=== PATIENT | male | born 1950 | race Caucasian/White ===

== ENCOUNTER → 2016-04-26 | Day surgery (SDC) | payer BC ==
[2016-04-23 10:26] VITALS: Ht 185.4 cm; Wt 108.2 kg
[~2016-04-26] VITALS: Ht 185.4 cm; Wt 108.2 kg
[~2016-04-26] MED LIST: ACET1TAB84 PO; ALL300 PO; ASCO500T3 PO; BUPIVACAINE 0.25% 2.5MG/ML PF 10 ML VIAL ONE; CHOL2000 PO; COEN1CAP17 PO; DICL50TA3 PO; IOPAMIDOL INJ 61% 15 ML VIAL ONE; LIDOCAINE HCL 1% MPF 5 ML VIAL ONE; LOSA100T26 PO; METO50TA7 PO; MRLP527 PO; SIMV-151 PO; ZLF/100 PO
--- NOTE | 2016-04-26 13:53 | History & Physical Bridge - [place] ---
H&P Re-Evaluation Bridge Note: I have examined the patient, reviewed the History & Physical and in the interval since the performance of the History & Physical I have noted the following changes of clinical significance: No changes noted
[2016-04-26 14:14] VITALS: TEMP 36.7
[2016-04-26 14:19] VITALS: BP 143/80; PULSE 57; O2SAT 95
--- NOTE | 2016-04-26 14:19 | Discharge Instructions ---
Discharge Instructions Visit Reason for Visit: Sacroiliitis Discharge Discharge Diagnosis / Problem: left SI joint pain Discharge Goals Goal(s): Decrease discomfort, Improve function Activity Recommendations Activity Limitations: resume your previous activity Anesthesia . Post Anesthesia Instructions: If you have had General Anesthesia or IV Sedation: * Do not drive today. * Resume driving when surgeon permits. * Do not make important decisions or sign legal documents today. * Call surgeon for: 1. Temperature elevations greater than 101 degrees F. 2. Uncontrollable pain. 3. Excessive bleeding. 4. Persistent nausea and vomiting. 5. Medication intolerance (nausea, vomiting or rash). * For nausea and vomiting use only clear liquids such as: tea, soda, bouillon until nausea subsides, then gradually increase diet as tolerated. * If you have any concerns or questions, call your surgeon's office. If physician is unavailable and it is an emergency, call 911 or go to the nearest emergency room. . Diet Recommendations Recommended Home Diet: resume previous diet Procedures Procedures Performed: Left Sacroiliac Joint Injection. Pending Studies Studies pending at discharge: no Medical Emergencies . Who to Call and When: Medical Emergencies: If at any time you feel your situation is an emergency, please call 911 immediately. . Non-Emergent Contact Non-Emergency issues call your: Specialist . . "Provider Documentation" section prepared by Seb Son.
--- NOTE | 2016-04-26 14:35 | OPERATIVE REPORT ---
DATE OF OPERATION: 04/26/2016 PREOPERATIVE DIAGNOSIS: Left sacroiliitis secondary to trauma. POSTOPERATIVE DIAGNOSIS: Same. PROCEDURE: Left sacroiliac joint injection under fluoroscopic guidance. INDICATIONS FOR PROCEDURE: The patient is a 65-year-old white male who presents today for a left SI joint injection. He developed sacroiliitis after he fell off a ladder and sustained nondisplaced transverse process fractures and a hematoma. That problem has resolved. However, he is still bothered by pain localizing to the left SI joint. His physical examination was consistent with this and he presents today for an injection to provide him with relief of malingering pain from this trauma. PHYSICAL EXAMINATION: GENERAL: Pleasant male seated comfortably in no apparent distress. MUSCULOSKELETAL: Point tenderness to palpation at the left sacroiliac joint, worse with extension. No pain with flexion. He has a normal motor and sensory examination of the lower extremities. CONSENT: Verbal and written consent was obtained from the patient. Risks and benefits were reviewed. Risks include but are not limited to abscess or allergic reaction and he wishes to proceed. DESCRIPTION OF PROCEDURE: The patient was taken back to the special procedure room of the [facility] where he was maintained in a prone position. Backside was cleansed with Betadine x3 and a dry sterile dressing was applied. Fluoroscope was used to identify the left SI joint and the overlying skin was anesthetized with 2.5 mL of lidocaine 1% with a 25-gauge 1.5-inch needle. A 25-gauge 3.5-inch spinal needle was then directed under fluoroscopic guidance into the joint. Isovue-300 contrast 0.25 mL was injected in which showed intra-articular placement of the needle. He then underwent injection after negative aspiration of 40 mg of Depo-Medrol and 1.5 mL of bupivacaine 0.25%. Injection was well tolerated. DISPOSITION: 1. The patient is taken out into the discharge recovery area where he will be discharged home once discharge criteria have been met. 2. Follow up in the [facility] office in 2-4 weeks. I attest to the content of the Intraoperative Record and any orders documented therein. Any exceptio ns are noted below.
== END | disposition home or self-care (01) ==
LOC: X.SURG 12:40
PROVIDERS: ATTEND Physical Medicine & Rehabilitation
DX: M46.1 Sacroiliitis, not elsewhere classified (principal); Z87.828 Personal history of other (healed) physical injury and trauma; F32.9 Major depressive disorder, single episode, unspecified; K57.30 Diverticulosis of large intestine without perforation or abscess without bleeding; I10 Essential (primary) hypertension; E78.5 Hyperlipidemia, unspecified

== ENCOUNTER → 2017-03-29 | Outpatient (CLI) | payer BC, OTHER ==
[~2017-03-29] MED LIST changes: -BUPIVACAINE 0.25% 2.5MG/ML PF 10 ML VIAL ONE; -IOPAMIDOL INJ 61% 15 ML VIAL ONE; -LIDOCAINE HCL 1% MPF 5 ML VIAL ONE; -LOSA100T26 PO; +LOSA100T33 PO
--- NOTE | 2017-03-29 11:53 | DIAGNOSTIC IMAGING REPORT ---
LEFT ELBOW 3 VIEWS CLINICAL HISTORY: Left elbow pain. FINDINGS: 3 views of left elbow are obtained. No prior studies are available for comparison at the time of dictation. The skeletal structures are well mineralized. No fracture is seen. There is a large enthesophyte at the triceps insertion. There are small enthesophytes seen along the humeral epicondyles. There is a 10 mm bony excrescence just above the lateral epicondyle which may represent a small osteochondroma. There is no joint effusion. The overlying soft tissues are within normal limits. IMPRESSION: 1. Mild degenerative change as above. No acute bony abnormality is seen in the left elbow. 2. Suspect a small osteochondroma arising just above the lateral humeral epicondyle. Electronically signed by: Quentin Gonzales M.D. 03/29/2017 11:51 AM Dictated Date/Time: 03/29/2017 11:49 AM
--- NOTE | 2017-03-29 11:53 | DIAGNOSTIC IMAGING REPORT ---
L HAND MIN 3 VIEWS CLINICAL HISTORY: LEFT HAND PAIN COMPARISON: None. DISCUSSION: Moderate degenerative change of the interphalangeal joints throughout the left hand. Metallic foreign bodies at the distal aspect of the thenar eminence within the soft tissues. These appear to be pre-existing and nonacute per history. No evidence for significant soft tissue edema. IMPRESSION: Moderate degenerative change primarily of the interphalangeal joints. Soft tissue metallic foreign bodies. No acute bony abnormalities identified. The above report was generated using voice recognition software. It may contain grammatical, syntax or spelling errors. Electronically signed by: Jaylen Reese M.D. 03/29/2017 11:52 AM Dictated Date/Time: 03/29/2017 11:51 AM
== END | disposition home or self-care (01) ==
LOC: C.RDSM 12:53
PROVIDERS: ATTEND Physician Assistant
DX: M79.642 Pain in left hand (principal); M25.522 Pain in left elbow; M89.8X4 Other specified disorders of bone, hand; M89.8X3 Other specified disorders of bone, forearm

== ENCOUNTER 2019-04-16 13:03 | Inpatient (IN) ==
[2019-04-16 15:57] LABS: BUN Creatinine Ratio 14.8 (10-20); Blood Urea Nitrogen 18 mg/dl (7-18); Calcium 9.5 mg/dl (8.5-10.1); Carbon Dioxide 27 mmol/L (21-32); Chloride 106 mmol/L (98-107); Creatinine Clr Calc Pharmacy 77.7 ml/min; Est GFR (African American) 72.1; Est GFR (Non-African American) 62.2; Glucose 108 mg/dl (70-99); Lipase 110 U/L (73-393); Potassium 4.2 mmol/L (3.5-5.1); Sodium 139 mmol/L (136-145)
[2019-04-16 16:02] LABS: Troponin I < 0.015 ng/ml (0-0.045)
[2019-04-16 16:08] LABS: Hematocrit (blood only) 47.6 % (42-52); Hemoglobin 16.5 g/dL (14.0-18.0); Mean Corpuscular Hemoglobin 31.3 pg (25-34); Mean Corpuscular Hgb Conc 34.7 g/dL (32-36); Mean Corpuscular Volume 90.3 fL (80-100); Mean Platelet Volume 11.6 fL (7.4-10.4); Platelet Count 78 K/uL (130-400); RDW Coefficient of Variation 14.3 % (11.5-14.5); RDW Standard Deviation 47.3 fL (36.4-46.3); Red Blood Count 5.27 M/uL (4.7-6.1); White Blood Count 4.92 K/uL (4.8-10.8)
[2019-04-16 16:11] LABS: Basophils # (auto) 0.01 K/uL (0-0.2); Basophils % (auto) 0.2 %; Eosinophils # (auto) 0.07 K/uL (0-0.5); Eosinophils % (auto) 1.4 %; Immature Granulocytes # (auto) 0.01 K/uL (0.00-0.02); Immature Granulocytes % (auto) 0.2 %; Lymphocytes # (auto) 1.02 K/uL (1.2-3.4); Lymphocytes % (auto) 20.7 %; Monocytes # (auto) 0.29 K/uL (0.11-0.59); Monocytes % (auto) 5.9 %; Neutrophils # (auto) 3.52 K/uL (1.4-6.5); Neutrophils % (auto) 71.6 %
--- NOTE | 2019-04-16 16:12 | CT Scan Report ---
CT SCAN OF THE BRAIN WITHOUT IV CONTRAST CLINICAL HISTORY: Dizziness. COMPARISON STUDY: No priors. TECHNIQUE: Unenhanced axial CT scan of the brain is performed from the vertex to the skull base. A do se lowering technique was utilized adhering to the principles of ALARA. CT DOSE: 729.78 mGycm FINDINGS: Brain parenchyma: There is minimal subcortical and periventricular microangiopathic change. There is no hemorrhage, mass effect, or evidence of acute territorial ischemia by CT criteria. Bae-white matthieu er differentiation is preserved. No extra-axial fluid collection is seen. Ventricles, sulci, cisterns: Normal in configuration. Intracranial vasculature: There is mild atherosclerotic calcification of the cavernous carotid and ve rtebral arteries. Calvarium: Unremarkable. Sinuses and mastoids: The visualized paranasal sinuses are clear. The mastoid air cells are well pneu matized. Orbits: The bony orbits are grossly intact. IMPRESSION: There is no hemorrhage, mass effect, or evidence of acute territorial ischemia by CT crit eria. ACT 112: Negative or not required by law. Electronically signed by: Quentin Gonzales M.D. 04/16/2019 4:10 PM
--- NOTE | 2019-04-16 16:13 | XRay Report ---
TWO VIEW CHEST CLINICAL HISTORY: Atypical chest pain. Dizziness. FINDINGS: PA and lateral chest radiographs are compared to study dated 02/03/2018. The cardiomediasti nal silhouette is unremarkable. There is chronic elevation of left hemidiaphragm with associated atel ectasis. The lungs and pleural spaces are otherwise clear. There is no pneumothorax. The bony thorax appears intact. Surgical clips are noted in the left axilla. IMPRESSION: No active disease in the chest. ACT 112: Negative or not required by law. Electronically signed by: Quentin Gonzales M.D. 04/16/2019 4:12 PM
[2019-04-16 16:14] LABS: Magnesium 2.2 mg/dl (1.8-2.4)
[2019-04-16 16:18] LABS: D Dimer < 190 ug/L FEU (0-500); Partial Thromboplastin Ratio 1.1; Prothrombin Time 10.6 Seconds (9.0-12.0)
--- NOTE | 2019-04-16 18:06 | Emergency Department Note ---
Entered by Belkis Shaw acting as a scribe for Dale Castro History of Present Illness General Chief complaint: Dizziness Stated complaint: DIZZINESS, LIGHTHEADED, FORGETFUL Time Seen by Provider: 04/16/19 15:13 Source: patient History of Present Illness Onset (ago): month(s) 1 Location: head Pain Consistency: + other (worsening) Maximum Pain Intensity: 5 Quality: + other (dizziness) Exacerbated By: + movement Associated symptoms: + denies other symptoms (hemoptysis), + chest pain, + shortness of breath and + other (loss of balance, forgetful) The patient is a 68 year old male who presents to the Emergency Room with compl aints of worsening dizziness starting a month ago. The patient states that on March 23 he went to his PCP because of it. He reports that he had been on Metformin for 3 weeks and they thought it was due to the medicine, so they took him off it. He notes that at that time they did lab work and everything was negative. He states that the dizziness continued though. He reports that 10 days ago he went to a clinic because he noticed it was worse when getting up. He reports that they diagnosed him with orthostatic hypotension and sent him home. He reports that when he went to his heart doctor 3 days ago, they told him it wasnt that because they didnt find the same findings. The patient states that he is just concerned as the dizziness is getting worse and he has started becoming short of breath when he goes up the stairs. He notes that he has also had constant chest pain in the center of his chest that radiates into his back. He notes that it occasionally radiates into his arm and neck. He notes that he cannot remember which arm. The patients notes that he has been forgetful lately as well. She notes that the patient has also been short of breath when getting out of the shower. The patient complains of loss of balance. The patient denies recent head trauma, recent travel, hemoptysis, use of hormone pills, and use of blood thinners. Home Medications Home Medications Medication Instructions Recorded Confirmed Type allopurinol 150 mg PO QAM 01/30/18 04/16/19 History ascorbic acid (vitamin C) 500 mg PO QAM 01/30/18 04/16/19 History aspirin [Aspir-81] 81 mg PO QPM 01/30/18 04/16/19 History cholecalciferol (vitamin D3) 2,000 unit PO QAM 01/30/18 04/16/19 History [Vitamin D3] coenzyme Q10 [CoQ-10] 100 mg PO QAM 01/30/18 04/16/19 History metoprolol succinate [Toprol XL] 50 mg PO QAM 01/30/18 04/16/19 History polyethylene glycol 3350 [Miralax] 17 g PO QAM 01/30/18 04/16/19 History sertraline [Zoloft] 100 mg PO PM 01/30/18 04/16/19 History simvastatin 20 mg PO PM 01/30/18 04/16/19 History nitroglycerin 0.4 mg sublingual 0.4 mg SL Q5M PRN #25 tab 01/12/19 04/16/19 Rx tablet losartan 100 0.5 tab PO QAM tab 03/30/19 04/16/19 History mg-hydrochlorothiazide 12.5 mg tablet Allergies Allergy/AdvReac Type Severity Reaction Status Date / Time hylan G-F 20 Allergy Mild KNEE Verified 04/16/19 15:10 INJECTION-KNEE SWELLING,SWEATING,FEVER Past Med/Surg History Surgical History History of cardiac cath KEVIN X 1 TO RCA (09/2016) one cardiac stent placed History of colon resection DIVERTICULITIS History of herniorrhaphy RIGHT INGUINAL History of total knee replacement LEFT TKA History of total knee replacement RIGHT -- [facility] 02/19/18. SAB + PNB, no issues noted on record. DID NOT REQUIRE PLATELET TRANSFUSION. Family History Other Family history non-contributory Social History Preferred Language: Portuguese Communication Ability: Effective Television Specialist Required: No Beliefs That Will Affect Care: None marital status: Current Living Situation: Spouse Feels Safe at Home: Yes Smoking Status: Former smoker Tobacco Type: cigarettes ; Second Hand Exposure: Yes (PREVIOUS 25 YRS AGO) ; Hx Alcohol Use: Yes Alcohol type: beer and wine Hx Substance Use: No Review of Systems See HPI for pertinent positives & negatives. and A total of 10 systems reviewed and were otherwise negative Physical Exam Vital Signs Vital Signs - 24 hr 04/16/19 13:28 04/16/19 13:35 04/16/19 15:46 Temperature 36.7 C Temperature Source Oral Pulse Rate - Sitting 59 L Pulse Rate - Standing 65 Pulse Rate [Left] 55 L Pulse Rhythm [Left] Regular Respiratory Rate 20 15 Respiratory Effort / Characteristics Non-Labored Spontaneous Non-Labored Respiratory Depth Normal Normal Respiratory Pattern Regular Regular Blood Pressure - Sitting 150/79 H Blood Pressure- Standing 155/99 H Blood Pressure 150/78 H Blood Pressure [Left Arm] 158/86 H Blood Pressure Mean 102 Blood Pressure Mean [Left Arm] 110 Blood Pressure Position Sitting Pulse Oximetry 94 94 Oxygen Delivery Method Room Air Room Air Sepsis Recent Fever Within 48 Hours No Sepsis New/Unexplained Change in Mental Status No Sepsis Action Taken by Nursing No Action Required 04/16/19 16:25 04/16/19 17:30 Temperature Temperature Source Pulse Rate - Sitting Pulse Rate - Standing Pulse Rate [Left] 92 H 92 H Pulse Rhythm [Left] Regular Regular Respiratory Rate 17 19 Respiratory Effort / Characteristics Non-Labored Spontaneous Non-Labored Respiratory Depth Normal Normal Respiratory Pattern Regular Regular Blood Pressure - Sitting Blood Pressure- Standing Blood Pressure Blood Pressure [Left Arm] 143/82 H 140/85 Blood Pressure Mean Blood Pressure Mean [Left Arm] 102 103 Blood Pressure Position Pulse Oximetry 98 95 Oxygen Delivery Method Room Air Room Air Sepsis Recent Fever Within 48 Hours Sepsis New/Unexplained Change in Mental Status Sepsis Action Taken by Nursing GENERAL: He is oriented to person, place, and time. He appears well-developed and well-nourished. He does not appear distressed. HENT: Exam performed. - Head: Normocephalic and atraumatic. - Right Ear: External ear normal. No mastoid tenderness. - Left Ear: External ear normal. No mastoid tenderness. - Mouth/Throat: The oropharynx is clear and moist. No trismus in the jaw. No dental abscesses or uvula swelling. No oropharyngeal exudate or tonsillar abscesses. EYES: Conjunctivae and EOM are normal. Pupils are equal, round, and reactive to light. Right eye exhibits no discharge. Left eye exhibits no discharge. No scleral icterus. NECK: Normal range of motion. Neck supple. No JVD present. No spinous process tenderness present. No carotid bruit present. No rigidity. No tracheal deviation and normal range of motion present. No Brudzinski's sign and no Kernig's sign noted. CV: Normal rate, regular rhythm, normal heart sounds and intact distal pulses. There is no peripheral edema. Palpable radial pulses bue. PULM/CHEST: Effort normal and breath sounds normal. No respiratory distress. No stridor. He has no wheezes. He has no rales. - Chest Wall: He exhibits no tenderness. ABD: The abdomen is soft. Bowel sounds are normal. He has no distension. No mass is present. There is no tenderness. There is no rebound, no guarding, no Galvan's sign and no tenderness at McBurney's point. Rovsig negative. MUSC/SKEL: Normal range of motion. There is no peripheral edema, tenderness or deformity. LYMPH: No cervical adenopathy. NEURO: He is alert and oriented to person, place, and time. He has normal strength. No cranial nerve deficit or sensory deficit. Coordination and gait normal. GCS eye subscore is 4. GCS verbal subscore is 5. GCS motor subscore is 6. Cerebellar tests wnl. SKIN: Skin is warm and dry. He is not diaphoretic. PSYCH: He has a normal mood and affect. Behavior is normal. Judgment and thought content normal. Course Course 1514: The patient was evaluated in room B7. A complete history and physical exam was performed. 1627: Vital signs stable. Labs and imaging within normal limits. The patient shows multiple PVCs on the campus monitor and the EKG. There is no pattern of bigemini or trigeminy at this time. Given the patient's exertional dyspnea and feelings of near syncope on exertion, the patient will be admitted for further evaluation. and patient are in agreement with this plan as they do not feel comfortable going home. I discussed the patient's case with Dr. Jauregui [facility] Hospitalist. He will evaluate the patient for further management. Medical Decision Making Medical Records Attestation: I reviewed the patient's medical records. Home Medications Current Medication List: was personally reviewed by me Laboratory Data Attestation: I reviewed the patient's lab results. Result diagrams: 04/16/19 15:33 04/16/19 15:33 Lab Results 04/16/19 04/16/19 04/16/19 Range/Units 15:33 15:33 15:33 WBC 4.92 (4.8-10.8) K/uL RBC 5.27 (4.7-6.1) M/uL Hgb 16.5 (14.0-18.0) g/dL Hct 47.6 (42-52) % MCV 90.3 (80-100) fL MCH 31.3 (25-34) pg MCHC 34.7 (32-36) g/dL RDW Std Deviation 47.3 H (36.4-46.3) fL RDW Coeff of Mari 14.3 (11.5-14.5) % Plt Count 78 L (130-400) K/uL MPV 11.6 H (7.4-10.4) fL Immature Gran % (Auto) 0.2 % Neut % (Auto) 71.6 % Lymph % (Auto) 20.7 % Gray % (Auto) 5.9 % Eos % (Auto) 1.4 % Baso % (Auto) 0.2 % Immature Gran # (Auto) 0.01 (0.00-0.02) K/uL Neut # (Auto) 3.52 (1.4-6.5) K/uL Lymph # (Auto) 1.02 L (1.2-3.4) K/uL Gray # (Auto) 0.29 (0.11-0.59) K/uL Eos # (Auto) 0.07 (0-0.5) K/uL Baso # (Auto) 0.01 (0-0.2) K/uL PT 10.6 (9.0-12.0) Seconds INR 1.0 (0.9-1.1) APTT 29.0 (21.0-31.0) Seconds PTT Ratio 1.1 D-Dimer < 190 (0-500) ug/L FEU Sodium 139 (136-145) mmol/L Potassium 4.2 (3.5-5.1) mmol/L Chloride 106 (98-107) mmol/L Carbon Dioxide 27 (21-32) mmol/L Anion Gap 6.0 (3-11) BUN 18 (7-18) mg/dl Creatinine 1.20 (0.6-1.4) mg/dl Est Cr Clr Drug Dosing 77.7 ml/min Est GFR ( Amer) 72.1 Est GFR (Non-Af Amer) 62.2 BUN/Creatinine Ratio 14.8 (10-20) Glucose 108 H (70-99) mg/dl Calcium 9.5 (8.5-10.1) mg/dl Magnesium 2.2 (1.8-2.4) mg/dl Troponin I < 0.015 (0-0.045) ng/ml Lipase 110 (73-393) U/L 04/16/19 Range/Units 15:33 WBC (4.8-10.8) K/uL RBC (4.7-6.1) M/uL Hgb (14.0-18.0) g/dL Hct (42-52) % MCV (80-100) fL MCH (25-34) pg MCHC (32-36) g/dL RDW Std Deviation (36.4-46.3) fL RDW Coeff of Mari (11.5-14.5) % Plt Count (130-400) K/uL MPV (7.4-10.4) fL Immature Gran % (Auto) % Neut % (Auto) % Lymph % (Auto) % Gray % (Auto) % Eos % (Auto) % Baso % (Auto) % Immature Gran # (Auto) (0.00-0.02) K/uL Neut # (Auto) (1.4-6.5) K/uL Lymph # (Auto) (1.2-3.4) K/uL Gray # (Auto) (0.11-0.59) K/uL Eos # (Auto) (0-0.5) K/uL Baso # (Auto) (0-0.2) K/uL PT (9.0-12.0) Seconds INR (0.9-1.1) APTT (21.0-31.0) Seconds PTT Ratio D-Dimer (0-500) ug/L FEU Sodium (136-145) mmol/L Potassium (3.5-5.1) mmol/L Chloride (98-107) mmol/L Carbon Dioxide (21-32) mmol/L Anion Gap (3-11) BUN (7-18) mg/dl Creatinine (0.6-1.4) mg/dl Est Cr Clr Drug Dosing ml/min Est GFR ( Amer) Est GFR (Non-Af Amer) BUN/Creatinine Ratio (10-20) Glucose (70-99) mg/dl Calcium (8.5-10.1) mg/dl Magnesium Cancelled (1.8-2.4) mg/dl Troponin I (0-0.045) ng/ml Lipase (73-393) U/L Imaging Data Radiologist's Impression: Radiology results as stated below per my review and the radiologist's interpretation: TWO VIEW CHEST CLINICAL HISTORY: Atypical chest pain. Dizziness. FINDINGS: PA and lateral chest radiographs are compared to study dated 02/03/2018. The cardiomediastinal silhouette is unremarkable. There is chronic elevation of left hemidiaphragm with associated atelectasis. The lungs and pleural spaces are otherwise clear. There is no pneumothorax. The bony thorax appears intact. Surgical clips are noted in the left axilla. IMPRESSION: No active disease in the chest. ACT 112: Negative or not required by law. Electronically signed by: Quentin Gonzales M.D. 04/16/2019 4:[address] SCAN OF THE BRAIN WITHOUT IV CONTRAST CLINICAL HISTORY: Dizziness. COMPARISON STUDY: No priors. TECHNIQUE: Unenhanced axial CT scan of the brain is performed from the vertex to the skull base. A dose lowering technique was utilized adhering to the principles of ALARA. CT DOSE: 729.78 mGycm FINDINGS: Brain parenchyma: There is minimal subcortical and periventricular microangiopathic change. There is no hemorrhage, mass effect, or evidence of acute territorial ischemia by CT criteria. Bae-white matter differentiation is preserved. No extra-axial fluid collection is seen. Ventricles, sulci, cisterns: Normal in configuration. Intracranial vasculature: There is mild atherosclerotic calcification of the cavernous carotid and vertebral arteries. Calvarium: Unremarkable. Sinuses and mastoids: The visualized paranasal sinuses are clear. The mastoid air cells are well pneumatized. Orbits: The bony orbits are grossly intact. IMPRESSION: There is no hemorrhage, mass effect, or evidence of acute territorial ischemia by CT criteria. ACT 112: Negative or not required by law. Electronically signed by: Quentin Gonzales M.D. 04/16/2019 4:10 PM ECG Data Attestation: I personally reviewed and interpreted this ECG as follows: Indication: + other (dizziness) Rate (beats per minute): 86 Rhythm: + sinus rhythm ECG Intervals/blocks: + First degree AV block and + Right Bundle branch block ECG ST segments: no ST depression and no ST elevation ECG Findings: + PVCs and + Other (CA interval 216, QRS interval 136, QT-c interval 500) Blood Pressure Blood Pressure Findings: Elevated blood pressure Blood Pressure Disposition: further management by hospitalist MDM Narrative Vital signs stable. Labs and imaging within normal limits. The patient shows multiple PVCs on the campus monitor and the EKG. There is no pattern of bigemini or trigeminy at this time. Given the patient's exertional dyspnea and feelings of near syncope on exertion, the patient will be admitted for further evaluation. and patient are in agreement with this plan as they do not feel comfortable going home. I discussed the patient's case with Dr. Shania KAPLAN Hospitalist. He will evaluate the patient for further management. Impression & Plan Exertional dyspnea, Near syncope, Frequent PVCs Discharge Plan Visit Data Chief Complaint: Dizziness Stated Complaint: DIZZINESS, LIGHTHEADED, FORGETFUL ED Provider: Dale Castro Discharge Problem: Exertional dyspnea, Near syncope, Frequent PVCs Patient Disposition: Being Evaluated by Hospitalist Forms Stand Alone Forms: My [facility] Prescriptions Prescriptions: No Action nitroglycerin 0.4 mg tablet, sublingual 0.4 mg SL Q5M PRN (Reason: chest pain) Qty: 25 RF: 3 losartan-hydrochlorothiazide [Hyzaar] 100-12.5 mg tablet 0.5 tab PO QAM RF: 0 polyethylene glycol 3350 [Miralax] 17 gram Powder In Packet 17 g PO QAM RF: 0 metoprolol succinate [Toprol XL] 50 mg Tablet Extended Release 24 Hr 50 mg PO QAM RF: 0 sertraline [Zoloft] 100 mg Tablet 100 mg PO PM RF: 0 simvastatin 20 mg Tablet 20 mg PO PM RF: 0 allopurinol 300 mg Tablet 150 mg PO QAM RF: 0 coenzyme Q10 [CoQ-10] 100 mg Capsule 100 mg PO QAM RF: 0 cholecalciferol (vitamin D3) [Vitamin D3] 2,000 unit Capsule 2,000 unit PO QAM RF: 0 ascorbic acid (vitamin C) 500 mg Capsule 500 mg PO QAM RF: 0 aspirin [Aspir-81] 81 mg Tablet,Delayed Release (Dr/Ec) 81 mg PO QPM RF: 0 Referrals Referrals: Wanda Delgadillo [Primary Care Provider] - The scribe's documentation has been prepared under my direction and personally reviewed by me in its entirety. I confirm that the note above accurately reflects all work, treatment, procedures, and medical decision making performed by me.
[2019-04-16] MEDS ORDERED: NITROGLYCERIN SL 0.4 MG/TAB TAB SL PRN (18:17)
--- NOTE | 2019-04-16 18:17 | History & Physical Report ---
Date of Service April 16, 2019 Assessment & Plan (1) Exertional dyspnea: Unclear from current work-up. Patient so far is not showing any signs of acute CHF or primary lung disorder. Will check 2D echo. Follow dysrhythmia on monitor with activity. Check orthostatics. Consideration to PFTs as an outpatient if no clear diagnosis can be found. (2) Near syncope: Possible orthostasis although patient had recent orthostatics checked that were unremarkable. We will continue to monitor this with PT. (3) Frequent PVCs: 2D echo ordered as noted above. Patient does follow with cardiology will ask for their recommendations as well. If okay with hydrochloric area supervisor, will increase Toprol dose to 100 mg daily. (4) Hypertension: Blood pressure mildly elevated, may improve with increased dosing of Toprol. History of Present Illness Primary Care Provider: Wanda Delgadillo This is a 62-year-old male with past medical history of previous coronary artery disease status post stent, BPH, and hypertension who presents today complaining of dyspnea on exertion as well as near syncope. Patient is coming by his both are good historians. There is some debate between the patient and his regarding when symptoms started. The patient does note that over the past few weeks he has been noticing some worsening dyspnea on exertion. This was not severe first but he apparently has progressed to the point that he is having difficulty with any ambulation. He did have. And near syncope earlier today which is what prompted him to seek emergency evaluation. He denies any overt chest pain, palpitations, diaphoresis, nausea, vomiting, recent illness with fever or chills. In the emergency room, he was noted to have some multiple PVCs on the monitor, heart rate at that time was stable in the 80s.. At the time my evaluation he had something that appeared to be trigeminy with a stable rate. Patient denies any recent weight changes. He also denies any cough or sputum production. He does state that his losartan was recently decreased and was wondering if that was relevant. Patient does follow with outpatient cardiology but only peripherally. Is on my evaluation the patient was in no acute distress and otherwise looked well. Allergies Allergy/AdvReac Type Severity Reaction Status Date / Time hylan G-F 20 Allergy Mild KNEE Verified 04/16/19 15:10 INJECTION-KNEE SWELLING,SWEATING,FEVER Home Medications Home Medications Medication Instructions Recorded Confirmed Type allopurinol 150 mg PO QAM 01/30/18 04/16/19 History ascorbic acid (vitamin C) 500 mg PO QAM 01/30/18 04/16/19 History aspirin [Aspir-81] 81 mg PO QPM 01/30/18 04/16/19 History cholecalciferol (vitamin D3) 2,000 unit PO QAM 01/30/18 04/16/19 History [Vitamin D3] coenzyme Q10 [CoQ-10] 100 mg PO QAM 01/30/18 04/16/19 History metoprolol succinate [Toprol XL] 50 mg PO QAM 01/30/18 04/16/19 History polyethylene glycol 3350 [Miralax] 17 g PO QAM 01/30/18 04/16/19 History sertraline [Zoloft] 100 mg PO PM 01/30/18 04/16/19 History simvastatin 20 mg PO PM 01/30/18 04/16/19 History nitroglycerin 0.4 mg sublingual 0.4 mg SL Q5M PRN #25 tab 01/12/19 04/16/19 Rx tablet losartan 100 0.5 tab PO QAM tab 03/30/19 04/16/19 History mg-hydrochlorothiazide 12.5 mg tablet Past Med/Surg History Surgical History History of cardiac cath KEVIN X 1 TO RCA (09/2016) one cardiac stent placed History of colon resection DIVERTICULITIS History of herniorrhaphy RIGHT INGUINAL History of total knee replacement LEFT TKA History of total knee replacement RIGHT -- [facility] 02/19/18. SAB + PNB, no issues noted on record. DID NOT REQUIRE PLATELET TRANSFUSION. 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 Beliefs That Will Affect Care: None marital status: Current Living Situation: Spouse Feels Safe at Home: Yes Smoking Status: Former smoker Tobacco Type: cigarettes ; Second Hand Exposure: Yes (PREVIOUS 25 YRS AGO) ; Hx Alcohol Use: Yes Alcohol type: beer and wine Hx Substance Use: No Review of Systems Constitutional: no fever, no chills, no sweats, no weight loss and no weight gain Ear, Nose, Mouth, Throat: as per Subjective / HPI Respiratory: + dyspnea on exertion; no cough, no chest congestion, no dyspnea and no wheezing Cardiovascular: + dyspnea, + orthopnea and + lightheadedness; no chest pain Gastrointestinal: no nausea, no vomiting, no constipation and no diarrhea/loose stools Genitourinary: no dysuria, no difficulty urinating, no urinary frequency, no urinary hesitancy and no urinary incontinence Musculoskeletal: as per Subjective / HPI Integumentary: as per Subjective / HPI Neurologic: as per Subjective / HPI Psychiatric: as per Subjective / HPI Physical Exam 2 Constitutional: well nourished, + well hydrated and cooperative; no acute distress ENMT: external ear and nose normal, oropharynx normal Neck: trachea midline, no thyromegaly Respiratory: Auscultation: lungs clear to auscultation bilaterally; no crackles, no rales, no rhonchi and no wheezes Cardiovascular: Rate/Rhythm: regular rate Heart Sounds: normal S1 and normal S2; no murmur Vessels: no JVD and no carotid bruit Irregularly regular rhythm Gastrointestinal (Abdomen): Percussion/Palpation: abdomen soft; abdomen nontender, no guarding, abdomen not rigid and no hepatosplenomegaly Musculoskeletal: no cyanosis or clubbing, extremities motor strength 5/5 Neurologic: PERRL, EOMI, accommodation nl, no face palsy, no dysarthria Psychiatric: A+Ox3, euthymic affect Results & Data Vital Signs (Past 12 Hours) Vital Signs Temp Pulse Resp BP BP Pulse Ox 04/16/19 17:30 92 H 19 140/85 95 04/16/19 16:25 92 H 17 143/82 H 98 04/16/19 15:46 55 L 15 158/86 H 94 04/16/19 13:28 36.7 C 20 150/78 H 94 Laboratory Results CBC unremarkable, INR is 1,, BMP is normal with a normal magnesium. Troponin was nondetectable. EKG shows sinus bradycardia with a trigeminy pattern multiple PVCs. There is right bundle branch block. Diagnostic Findings TWO VIEW CHEST CLINICAL HISTORY: Atypical chest pain. Dizziness. FINDINGS: PA and lateral chest radiographs are compared to study dated 02/03/2018. The cardiomediastinal silhouette is unremarkable. There is chronic elevation of left hemidiaphragm with associated atelectasis. The lungs and pleural spaces are otherwise clear. There is no pneumothorax. The bony thorax appears intact. Surgical clips are noted in the left axilla. IMPRESSION: No active disease in the chest. --- CT SCAN OF THE BRAIN WITHOUT IV CONTRAST CLINICAL HISTORY: Dizziness. COMPARISON STUDY: No priors. TECHNIQUE: Unenhanced axial CT scan of the brain is performed from the vertex to the skull base. A dose lowering technique was utilized adhering to the principles of ALARA. CT DOSE: 729.78 mGycm FINDINGS: Brain parenchyma: There is minimal subcortical and periventricular microangiopathic change. There is no hemorrhage, mass effect, or evidence of acute territorial ischemia by CT criteria. Bae-white matter differentiation is preserved. No extra-axial fluid collection is seen. Ventricles, sulci, cisterns: Normal in configuration. Intracranial vasculature: There is mild atherosclerotic calcification of the cavernous carotid and vertebral arteries. Calvarium: Unremarkable. Sinuses and mastoids: The visualized paranasal sinuses are clear. The mastoid air cells are well pneumatized. Orbits: The bony orbits are grossly intact. IMPRESSION: There is no hemorrhage, mass effect, or evidence of acute territorial ischemia by CT criteria. PG Care Time/CCT Total # of Minutes Spent Total Time Spent with Patient: Total time spent is greater than 50% in coordination of care (as documented) at patient's floor/unit and/or counseling patient:
[2019-04-16] MEDS ORDERED: ACETAMINOPHEN 325 MG TAB PO PRN (19:30)
[2019-04-16] MEDS ORDERED: ZOLPIDEM TARTRATE 5 MG TAB PO PRN (19:30)
[2019-04-16] MEDS: ASPIRIN 81 MG ECTAB PO SCH (21:33)
[2019-04-16] MEDS: SERTRALINE HCL 100 MG TABLET PO SCH (21:33)
[2019-04-16] MEDS: SIMVASTATIN 20 MG TAB PO SCH (21:33)
[2019-04-17 07:46] LABS: Hematocrit (blood only) 47.2 % (42-52); Hemoglobin 16.3 g/dL (14.0-18.0); Mean Corpuscular Hemoglobin 31.5 pg (25-34); Mean Corpuscular Hgb Conc 34.5 g/dL (32-36); Mean Corpuscular Volume 91.1 fL (80-100); Mean Platelet Volume 12.5 fL (7.4-10.4); Platelet Count 78 K/uL (130-400); RDW Coefficient of Variation 14.4 % (11.5-14.5); RDW Standard Deviation 47.7 fL (36.4-46.3); Red Blood Count 5.18 M/uL (4.7-6.1); White Blood Count 3.92 K/uL (4.8-10.8)
[2019-04-17 07:52] LABS: Basophils # (auto) 0.01 K/uL (0-0.2); Basophils % (auto) 0.3 %; Eosinophils # (auto) 0.08 K/uL (0-0.5); Lymphocytes # (auto) 0.88 K/uL (1.2-3.4); Lymphocytes % (auto) 22.4 %; Monocytes # (auto) 0.23 K/uL (0.11-0.59); Monocytes % (auto) 5.9 %; Neutrophils # (auto) 2.72 K/uL (1.4-6.5); Neutrophils % (auto) 69.4 %
[2019-04-17 08:03] LABS: BUN Creatinine Ratio 14.4 (10-20); Creatinine Clr Calc Pharmacy 85.5 ml/min; Est GFR (African American) 81.9; Est GFR (Non-African American) 70.6; Potassium 3.7 mmol/L (3.5-5.1)
[2019-04-17] MEDS ORDERED: NON-FORMULARY MEDICATION (Coenzyme Q10 [Coq-10] 100 MG) PO SCH (09:00)
[2019-04-17] MEDS ORDERED: METOPROLOL SUCC 50MG EXT REL TAB PO SCH (09:00)
[2019-04-17] MEDS: ASCORBIC ACID 500 MG TAB PO SCH (09:47)
[2019-04-17] MEDS: allopurinoL 100 MG TAB PO SCH (09:48)
[2019-04-17] MEDS: CHOLECALCIFEROL 1,000 UNITS TAB PO SCH (09:48)
[2019-04-17] MEDS: hydroCHLOROthiazide 25 MG TAB PO SCH (09:48)
[2019-04-17] MEDS: LOSARTAN POTASSIUM 50 MG TAB PO SCH (09:48)
[2019-04-17] MEDS: POLYETHYLENE (MIRALAX) 17 GM PACK PO SCH (09:49)
[2019-04-17 11:18] LABS: Chol HDL Ratio 5; Cholesterol 137 mg/dl (0-200); HDL Cholesterol 28 mg/dl; LDL Cholesterol Calculated 64 mg/dl; Triglycerides 226 mg/dl (0-150); VLDL Cholesterol 45 mg/dl
[2019-04-17 13:19] LABS: Estimated Average Glucose 117 mg/dl; Hemoglobin A1C 5.7 % (4.5-5.6)
--- NOTE | 2019-04-17 13:24 | Cardiology Consultation ---
Date of Consultation April 17, 2019 Assessment & Plan (1) Dizziness: Suspect the patient may be experiencing benign positional vertigo. Jose Alfredo's maneuvers may be of benefit. (2) Frequent PVCs: Of no clinical significance. (3) CAD (coronary artery disease): As above, had a drug-eluting stent placed in the mid RCA back in September 2016. Was also found to have a mid LAD bridge. (4) Hypertension: Adequate control on current medical regimen. (5) Valvular disease: Mild mitral regurgitation noted on echocardiogram January 2018. Repeat study pending. History of Present Illness Attending Physician: Edouard Villalobos DO History of Present Illness Mr. Garduno is a 68-year-old male dizziness and an atypical chest pain syndrome. This consultations were to assistance management. Of note, I met the patient in December for consultation. The patient was in his usual state of health until approximately 1 month ago. The patient began to note orthostatic dizziness and occasional dizziness if he turns his head quickly. He also noted substernal chest discomfort after eating. His symptoms typically resolved with antacids. The patient has not experienced any exertional chest pain or limiting dyspnea. He further denies syncope, PND, orthopnea, palpitations, lower extremity edema, and claudication. The patient's cardiac history began in September 2016. The patient had failed a stress test and underwent a cardiac catheterization which revealed a significant stenosis in the mid right coronary artery. He had a 3.5 x 16 mm KEVIN placed at that time. He was also found to have a mid LAD bridge and a functional 40-50% stenosis. The patient is careful to follow a heart healthy diet. He has done so since his father suffered OH when the patient was 20 years of age. The patient follows blood pressures occasionally at home. We have discussed importance of this activity. An echocardiogram performed last January noted normal left ventricular systolic function without wall motion abnormalities. There was mild mitral regurgitation. Past medical and surgical history 1. Coronary artery disease-see above 2. RCA KEVIN-September 2016 3. Hypertension 4. Hypercholesterolemia 5. Obstructive sleep apnea 6. Gout 7. Idiopathic thrombocytopenic purpura 8. DJD 9. Diverticulosis 10. Partial colectomy-February 2010 11. Left TKR-December 2014 12. Right TKR-January 2018 13. Inguinal hernia repair 14. Left axillary mass [id number] 2019 Social history and lives with his Retired from [employer] Quit tobacco in April 1974 Rare alcohol Family history Mother at 80 from urosepsis Father had his 1st OH at age 52. Bypass surgery at 67. at 80 from an OH Review of systems A 10 point review of systems was negative except for that described above. Allergies Allergy/AdvReac Type Severity Reaction Status Date / Time hylan G-F 20 Allergy Mild KNEE Verified 04/16/19 15:10 INJECTION-KNEE SWELLING,SWEATING,FEVER Home Medications Home Medications Medication Instructions Recorded Confirmed Type allopurinol 150 mg PO QAM 01/30/18 04/16/19 History ascorbic acid (vitamin C) 500 mg PO QAM 01/30/18 04/16/19 History aspirin [Aspir-81] 81 mg PO QPM 01/30/18 04/16/19 History cholecalciferol (vitamin D3) 2,000 unit PO QAM 01/30/18 04/16/19 History [Vitamin D3] coenzyme Q10 [CoQ-10] 100 mg PO QAM 01/30/18 04/16/19 History metoprolol succinate [Toprol XL] 50 mg PO QAM 01/30/18 04/16/19 History polyethylene glycol 3350 [Miralax] 17 g PO QAM 01/30/18 04/16/19 History sertraline [Zoloft] 100 mg PO PM 01/30/18 04/16/19 History simvastatin 20 mg PO PM 01/30/18 04/16/19 History nitroglycerin 0.4 mg sublingual 0.4 mg SL Q5M PRN #25 tab 01/12/19 04/16/19 Rx tablet losartan 100 0.5 tab PO QAM tab 03/30/19 04/16/19 History mg-hydrochlorothiazide 12.5 mg tablet Patient History Surgical History History of cardiac cath KEVIN X 1 TO RCA (09/2016) one cardiac stent placed History of colon resection DIVERTICULITIS History of herniorrhaphy RIGHT INGUINAL History of total knee replacement LEFT TKA History of total knee replacement RIGHT -- [facility] 02/19/18. SAB + PNB, no issues noted on record. DID NOT REQUIRE PLATELET TRANSFUSION. Family History Other Family history non-contributory Social History Preferred Language: [place] Citizen Communication Ability: Effective Relations Mgr Required: No Beliefs That Will Affect Care: None marital status: Current Living Situation: Spouse Other Information That Helps Us Care for You: No Feels Safe at Home: Yes Safety Concerns: Feels Safe At This Time Smoking Status: Former smoker Tobacco Type: cigarettes ; Do You Dip or Chew Tobacco: No ; Smoking End Date: 1973 ; Second Hand Exposure: No ; Tobacco Cessation Education Requested by Patient: No Hx Alcohol Use: Yes Alcohol type: beer and wine Hx Substance Use: No Physical Exam Physical Exam: In general this is a well-developed well-nourished white male in no acute distress. HEENT exam is negative. Neck is supple with full carotid upstrokes. There are no carotid bruits. Jugular venous pressure is flat at 90. There is no thyromegaly. Cardiovascular exam reveals a regular rhythm with a normal S1 and S2. No S3, S4, or murmurs are noted. Lungs are clear without rales, rhonchi, or wheezes. Abdomen is soft and nontender without bruits. Extremities reveal intact radial artery and posterior tibial pulses bilaterally. There is no peripheral edema. Results & Data Vital Signs (Past 12 Hours) Vital Signs Temp Pulse Pulse Resp BP BP Pulse Ox 04/17/19 11:42 36.8 C 18 94 04/17/19 09:45 96 H 04/17/19 08:13 36.8 C 59 L 18 134/84 95 04/17/19 03:55 36.4 C L 59 L 16 113/66 93 Laboratory Results Laboratory Results - last 24 hr 04/16/19 04/16/19 04/16/19 15:33 15:33 15:33 WBC 4.92 RBC 5.27 Hgb 16.5 Hct 47.6 MCV 90.3 MCH 31.3 MCHC 34.7 RDW Std Deviation 47.3 H RDW Coeff of Mari 14.3 Plt Count 78 L MPV 11.6 H Immature Gran % (Auto) 0.2 Neut % (Auto) 71.6 Lymph % (Auto) 20.7 [place] % (Auto) 5.9 Eos % (Auto) 1.4 Baso % (Auto) 0.2 Immature Gran # (Auto) 0.01 Neut # (Auto) 3.52 Lymph # (Auto) 1.02 L [place] # (Auto) 0.29 Eos # (Auto) 0.07 Baso # (Auto) 0.01 PT 10.6 INR 1.0 APTT 29.0 PTT Ratio 1.1 D-Dimer < 190 Sodium 139 Potassium 4.2 Chloride 106 Carbon Dioxide 27 Anion Gap 6.0 BUN 18 Creatinine 1.20 Est Cr Clr Drug Dosing 77.7 Est GFR ( Amer) 72.1 Est GFR (Non-Af Amer) 62.2 BUN/Creatinine Ratio 14.8 Glucose 108 H Estimat Average Glucose Hemoglobin A1c Calcium 9.5 Magnesium 2.2 Troponin I < 0.015 Triglycerides Cholesterol LDL Cholesterol, Calc VLDL Cholesterol, Calc HDL Cholesterol Cholesterol/HDL Ratio Lipase 110 04/16/19 04/16/19 04/17/19 15:33 15:33 06:49 WBC 3.92 L RBC 5.18 Hgb 16.3 Hct 47.2 MCV 91.1 MCH 31.5 MCHC 34.5 RDW Std Deviation 47.7 H RDW Coeff of Mari 14.4 Plt Count 78 L MPV 12.5 H Immature Gran % (Auto) 0.0 Neut % (Auto) 69.4 Lymph % (Auto) 22.4 [place] % (Auto) 5.9 Eos % (Auto) 2.0 Baso % (Auto) 0.3 Immature Gran # (Auto) 0.00 Neut # (Auto) 2.72 Lymph # (Auto) 0.88 L [place] # (Auto) 0.23 Eos # (Auto) 0.08 Baso # (Auto) 0.01 PT INR APTT PTT Ratio D-Dimer Sodium Potassium Chloride Carbon Dioxide Anion Gap BUN Creatinine Est Cr Clr Drug Dosing Est GFR ( Amer) Est GFR (Non-Af Amer) BUN/Creatinine Ratio Glucose Estimat Average Glucose 117 Hemoglobin A1c 5.7 H Calcium Magnesium Cancelled Troponin I Triglycerides Cholesterol LDL Cholesterol, Calc VLDL Cholesterol, Calc HDL Cholesterol Cholesterol/HDL Ratio Lipase 04/17/19 04/17/19 06:49 06:49 WBC RBC Hgb Hct MCV MCH MCHC RDW Std Deviation RDW Coeff of Mari Plt Count MPV Immature Gran % (Auto) Neut % (Auto) Lymph % (Auto) [place] % (Auto) Eos % (Auto) Baso % (Auto) Immature Gran # (Auto) Neut # (Auto) Lymph # (Auto) [place] # (Auto) Eos # (Auto) Baso # (Auto) PT INR APTT PTT Ratio D-Dimer Sodium 138 Potassium 3.7 Chloride 104 Carbon Dioxide 28 Anion Gap 6.0 BUN 16 Creatinine 1.08 Est Cr Clr Drug Dosing 85.5 Est GFR ( Amer) 81.9 Est GFR (Non-Af Amer) 70.6 BUN/Creatinine Ratio 14.4 Glucose 108 H Estimat Average Glucose Hemoglobin A1c Calcium 9.0 Magnesium Troponin I Triglycerides 226 H Cholesterol 137 LDL Cholesterol, Calc 64 VLDL Cholesterol, Calc 45 HDL Cholesterol 28 Cholesterol/HDL Ratio 5 Lipase Diagnostic Findings EKG notes sinus rhythm with frequent PVCs. There is a complete right bundle- branch block. PG Care Time/CCT Total # of Minutes Spent Total Time Spent with Patient: Total time spent is greater than 50% in coordination of care (as documented) at patient's floor/unit and/or counseling patient:
--- NOTE | 2019-04-17 13:30 | Hospitalist Progress Note ---
Date of Service April 17, 2019 Assessment & Plan (1) Exertional dyspnea: 68 y/o M who presented with 6 weeks of sporadic dizziness and lightheadedness when walking around the house and up the stairs Exertional dyspnea: - uncertain origin and etiology, comes with the dizziness while walking halls with providers, HR maintained in low 60s despite increased work of breathing - had stent placed in 2017, with residual atherosclerotic disease - EKG demonstrated frequent PVCs; telemetry remains with frequent PVCs that are new with this admission - Echo: demonstrated normal cardiac function - continue losartan 50mg daily, and HCTZ - decrease Toprol XL to 50mg QAM - will continue to monitor patient with ambulation to evaluate continued changes - Cards consulted: appreciate recs, do not feel that PVCs are clinically significant Dizziness: - likely a continuation of the non-cardiac dyspnea Frequent PVCs: - no change throughout the day - as above Chronic ITP: - baseline platelets set between 80-100 - continue to monitor Depression: - continue home meds Diet: Code: DVT ppx: (2) Dizziness: (3) Frequent PVCs: (4) Near syncope: (5) Chronic ITP (idiopathic thrombocytopenia): (6) Depression: Supervising Physician Co-Signing Physician Notes I personally examined the patient and verified all mandujano points of history and exam, discussed case, and agree with decision making with Dr Sánchez. Patient notes a rather complicated HPI with multiple factors. It seems the central theme is a lightheadedness that is predominantly exertionalhe notes clearly it is not a dizziness, but notes that he had a hard time putting that into words before. Now that he is been asked the question multiple times he is a better understanding of how to describe it for people to understand him, but notes it is not a spinning sensation but rather is more like a lightheadedness like he is going to pass out. Seems to be worse with worse exertion, and whenever to really bad he gets more short of breath. 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 The notes that when this happens he gets very pale. Separate to this he does note a bit of an unsteadiness on his feet when he is in the dark such as when getting up to void in the middle the night, or closing his eyes when he is in the shower. Lastly, and probably unrelated to all of the above is that he has had a degree of seasonal affective depression, worse since he retired, but definitely worse in the winter. He denies any recent medication changes outside of starting on metformin about the time that his symptoms started, but he notes he had a little bit of early GI side effect to this that quickly went away, he has been off of the medication for quite a while with no change in his symptoms, and he has not had any real change in his appetite/oral intake, or weight. Vitals noted, in general he is awake and alert pleasant no distress. HEENT normocephalic atraumatic mucous membranes are moist. Breathing at rest is unlabored with no accessory muscles good effort, but after a only moderately brisk walk around the hallway (maybe 100 feet) he is mildly tachypneic with a mild degree of accessory muscles that does quickly resolve but is present. Of note during this time his heart rate was 60 and his pulse ox was 96 to 97%. No focal neuro deficits. Mental status shows good recent and remote recall normal mood and affect good judgment and insight. Lightheadedness/dyspnea on exertion-etiology not entirely clear. Does appear to be a lightheadedness not vertiginous sensation. He was feeling orthostatic symptoms severely enough that his blood pressure medicines were reduced recently, and despite what appeared to be more work than I would expect him to be putting out to walk around the hallway, his heart rate did not increase appropriately. This would all put together a plausible story of being on more metoprolol than he needs to be, blunting his heart rate response, and therefore reducing his cardiac outputtherefore we will reduce the metoprolol and follow how he does. At the same time given his rather severe coronary disease I do have a hard time completely ruling out any sort of exertional anginal equivalent, and would like to pursue stress testing in the near future as is feasible. Furthermore, the patient and have a rather significant anxiety about his situation given how long it has been going on how severe he looks whenever things get worse, making it more pressing to have a working diagnosis and plan affecting improvement prior to discharge from the hospital. Unsteadiness when he closes his eyesdoes not seem to be a dominant part of the picture, will follow for any signs or symptoms of any other neuropathic process. Seasonal affective/depressiondiscussed lifestyle modalities, continue current medications. Approximately 45 minutes [id number], time in the room about 245p, time out of the room about 3:30 PM. Otherwise as above Subjective Patient endorse no continued symptoms since admission; over the last six weeks has had a light headedness and shortness of breath when walking around his home, or when walking up stairs. Initially at that time it was thought to be due to the recent start of metformin, that he had not been on prior, but it continued after the stop of the medication. Was seen in the cardiology office, for evaluation of potential orthostatic blood pressures but these results were negative. Throughout this time, he has not had a positional change to his lightheadedness or had a feeling of the "being drunk-type dizziness" this lightheadedness was felt to be more like he could not catch his breath and this would resolve with some rest and some extended time sitting down. Review of Systems Constitutional: no fever, no chills and no sweats Eyes: no diplopia and no spots in vision Ear, Nose, Mouth, Throat: no dizziness Respiratory: no cough, no dyspnea and no wheezing Cardiovascular: no chest pain, no palpitations and no edema Gastrointestinal: no nausea and no vomiting Physical Exam Constitutional: WD/WN, vitals as above Eyes: PERRL, conjunctivae normal, anicteric sclerae Respiratory: normal respiratory effort, lungs clear to auscultation Cardiovascular: Rate/Rhythm: regular rate and regular rhythm Heart Sounds: normal S1 and normal S2; no gallop, no murmur and no cardiac rub Vessels: no JVD and no carotid bruit Extremities: no edema Gastrointestinal (Abdomen): normal bowel sounds, soft, nontender, no hepatosplenomegaly Results & Data Vital Signs (Past 12 Hours) Vital Signs Temp Pulse Pulse Resp BP BP Pulse Ox 04/17/19 11:42 36.8 C 18 94 04/17/19 09:45 96 H 04/17/19 08:13 36.8 C 59 L 18 134/84 95 04/17/19 03:55 36.4 C L 59 L 16 113/66 93 Laboratory Results 12/27/19 12/27/19 12/27/19 Range/Units 06:49 06:49 06:49 WBC 3.92 L (4.8-10.8) K/uL RBC 5.18 (4.7-6.1) M/uL Hgb 16.3 (14.0-18.0) g/dL Hct 47.2 (42-52) % MCV 91.1 (80-100) fL MCH 31.5 (25-34) pg MCHC 34.5 (32-36) g/dL RDW Std Deviation 47.7 H (36.4-46.3) fL RDW Coeff of Mari 14.4 (11.5-14.5) % Plt Count 78 L (130-400) K/uL MPV 12.5 H (7.4-10.4) fL Immature Gran % (Auto) 0.0 % Neut % (Auto) 69.4 % Lymph % (Auto) 22.4 % Ingham % (Auto) 5.9 % Eos % (Auto) 2.0 % Baso % (Auto) 0.3 % Immature Gran # (Auto) 0.00 (0.00-0.02) K/uL Neut # (Auto) 2.72 (1.4-6.5) K/uL Lymph # (Auto) 0.88 L (1.2-3.4) K/uL Ingham # (Auto) 0.23 (0.11-0.59) K/uL Eos # (Auto) 0.08 (0-0.5) K/uL Baso # (Auto) 0.01 (0-0.2) K/uL PT (9.0-12.0) Seconds INR (0.9-1.1) APTT (21.0-31.0) Seconds PTT Ratio D-Dimer (0-500) ug/L FEU Sodium 138 (136-145) mmol/L Potassium 3.7 (3.5-5.1) mmol/L Chloride 104 (98-107) mmol/L Carbon Dioxide 28 (21-32) mmol/L Anion Gap 6.0 (3-11) BUN 16 (7-18) mg/dl Creatinine 1.08 (0.6-1.4) mg/dl Est Cr Clr Drug Dosing 85.5 ml/min Est GFR ( Amer) 81.9 Est GFR (Non-Af Amer) 70.6 BUN/Creatinine Ratio 14.4 (10-20) Glucose 108 H (70-99) mg/dl Estimat Average Glucose mg/dl Hemoglobin A1c (4.5-5.6) % Calcium 9.0 (8.5-10.1) mg/dl Magnesium (1.8-2.4) mg/dl Troponin I (0-0.045) ng/ml Triglycerides 226 H (0-150) mg/dl Cholesterol 137 (0-200) mg/dl LDL Cholesterol, Calc 64 mg/dl VLDL Cholesterol, Calc 45 mg/dl HDL Cholesterol 28 mg/dl Cholesterol/HDL Ratio 5 04/16/19 04/16/19 04/16/19 Range/Units 15:33 15:33 15:33 WBC (4.8-10.8) K/uL RBC (4.7-6.1) M/uL Hgb (14.0-18.0) g/dL Hct (42-52) % MCV (80-100) fL MCH (25-34) pg MCHC (32-36) g/dL RDW Std Deviation (36.4-46.3) fL RDW Coeff of Mari (11.5-14.5) % Plt Count (130-400) K/uL MPV (7.4-10.4) fL Immature Gran % (Auto) % Neut % (Auto) % Lymph % (Auto) % Ing[place] % (Auto) % Eos % (Auto) % Baso % (Auto) % Immature Gran # (Auto) (0.00-0.02) K/uL Neut # (Auto) (1.4-6.5) K/uL Lymph # (Auto) (1.2-3.4) K/uL Ingham # (Auto) (0.11-0.59) K/uL Eos # (Auto) (0-0.5) K/uL Baso # (Auto) (0-0.2) K/uL PT (9.0-12.0) Seconds INR (0.9-1.1) APTT (21.0-31.0) Seconds PTT Ratio D-Dimer (0-500) ug/L FEU Sodium (136-145) mmol/L Potassium (3.5-5.1) mmol/L Chloride (98-107) mmol/L Carbon Dioxide (21-32) mmol/L Anion Gap (3-11) BUN (7-18) mg/dl Creatinine (0.6-1.4) mg/dl Est Cr Clr Drug Dosing ml/min Est GFR ( Amer) Est GFR (Non-Af Amer) BUN/Creatinine Ratio (10-20) Glucose (70-99) mg/dl Estimat Average Glucose 117 mg/dl Hemoglobin A1c 5.7 H (4.5-5.6) % Calcium (8.5-10.1) mg/dl Magnesium Cancelled 2.2 (1.8-2.4) mg/dl Troponin I < 0.015 (0-0.045) ng/ml Triglycerides (0-150) mg/dl Cholesterol (0-200) mg/dl LDL Cholesterol, Calc mg/dl VLDL Cholesterol, Calc mg/dl HDL Cholesterol mg/dl Cholesterol/HDL Ratio 04/16/19 04/16/19 Range/Units 15:33 15:33 WBC 4.92 (4.8-10.8) K/uL RBC 5.27 (4.7-6.1) M/uL Hgb 16.5 (14.0-18.0) g/dL Hct 47.6 (42-52) % MCV 90.3 (80-100) fL MCH 31.3 (25-34) pg MCHC 34.7 (32-36) g/dL RDW Std Deviation 47.3 H (36.4-46.3) fL RDW Coeff of Mari 14.3 (11.5-14.5) % Plt Count 78 L (130-400) K/uL MPV 11.6 H (7.4-10.4) fL Immature Gran % (Auto) 0.2 % Neut % (Auto) 71.6 % Lymph % (Auto) 20.7 % Ing[place] % (Auto) 5.9 % Eos % (Auto) 1.4 % Baso % (Auto) 0.2 % Immature Gran # (Auto) 0.01 (0.00-0.02) K/uL Neut # (Auto) 3.52 (1.4-6.5) K/uL Lymph # (Auto) 1.02 L (1.2-3.4) K/uL [place] # (Auto) 0.29 (0.11-0.59) K/uL Eos # (Auto) 0.07 (0-0.5) K/uL Baso # (Auto) 0.01 (0-0.2) K/uL PT 10.6 (9.0-12.0) Seconds INR 1.0 (0.9-1.1) APTT 29.0 (21.0-31.0) Seconds PTT Ratio 1.1 D-Dimer < 190 (0-500) ug/L FEU Sodium (136-145) mmol/L Potassium (3.5-5.1) mmol/L Chloride (98-107) mmol/L Carbon Dioxide (21-32) mmol/L Anion Gap (3-11) BUN (7-18) mg/dl Creatinine (0.6-1.4) mg/dl Est Cr Clr Drug Dosing ml/min Est GFR ( Amer) Est GFR (Non-Af Amer) BUN/Creatinine Ratio (10-20) Glucose (70-99) mg/dl Estimat Average Glucose mg/dl Hemoglobin A1c (4.5-5.6) % Calcium (8.5-10.1) mg/dl Magnesium (1.8-2.4) mg/dl Troponin I (0-0.045) ng/ml Triglycerides (0-150) mg/dl Cholesterol (0-200) mg/dl LDL Cholesterol, Calc mg/dl VLDL Cholesterol, Calc mg/dl HDL Cholesterol mg/dl Cholesterol/HDL Ratio Medications Administered Current Inpatient Medications Acetaminophen (Tylenol) 650 mg PO Q4H PRN PRN Reason: Pain or Fever Stop: 05/16/19 19:29 Last Admin: 04/16/19 23:25 Dose: 650 mg Documented by: [facility] [place]: 05/17/19 08:59 Last Admin: 04/17/19 09:48 Dose: 150 mg Documented by: Ascorbic Acid (Vitamin C) 500 mg PO QAM [facility] Stop: 05/17/19 08:59 Last Admin: 04/17/19 09:47 Dose: 500 mg Documented by: Aspirin (Ecotrin Ectab) 81 mg PO QPM [facility] Stop: 05/16/19 20:59 Last Admin: 04/16/19 21:33 Dose: 81 mg Documented by: [facility]chlorothiazide (Hctz) 6.[facility] [place]: 05/17/19 08:59 Last Admin: 04/17/19 09:48 Dose: 6.25 mg Documented by: Losartan Potassium (Cozaar) 50 mg PO QAM [facility] Stop: 05/17/19 08:59 Last Admin: 04/17/19 09:48 Dose: 50 mg Documented by: Metoprolol Succinate (Toprol Xl) 50 mg PO QAM [facility] Stop: 05/18/19 08:59 Nitroglycerin (Nitrostat) 0.4 mg SL Q5M PRN PRN Reason: chest pain Stop: 05/16/19 18:16 Polyethylene Glycol (Miralax Powder Packet) [facility] [place]: 05/17/19 08:59 Last Admin: 04/17/19 09:49 Dose: 17 gm Documented by: Sertraline HCl (Zoloft) 100 mg PO PM [facility] Stop: 05/16/19 20:59 Last Admin: 04/16/19 21:33 Dose: 100 mg Documented by: Simvastatin (Zocor) 20 mg PO PM [facility] Stop: 05/16/19 20:59 Last Admin: 04/16/19 21:33 Dose: 20 mg Documented by: Vitamin D (Vitamin D3) 2,000 [facility] [place]: 05/17/19 08:59 Last Admin: 04/17/19 09:48 Dose: 2,000 units Documented by: Zolpidem Tartrate (Ambien) 5 mg PO HS PRN PRN Reason: Sleep Stop: 05/16/19 19:29 Resident Activity Tracking Resident Involvement: Resident Care Provided Care Provided: Adult Hospital Medicine
--- NOTE | 2019-04-17 16:34 | Billing Data ---
Date of Service April 17, 2019 Coding Level of Care Code 31020 Subseq Hosp Care Lvl 3
--- NOTE | 2019-04-17 16:34 | Billing Data ---
Date of Service April 17, 2019 Coding Level of Care Code 88303 Prolonged Care (int'l)
[2019-04-17] MEDS: ASPIRIN 81 MG ECTAB PO SCH (20:59)
[2019-04-17] MEDS: SIMVASTATIN 20 MG TAB PO SCH (20:59)
[2019-04-17] MEDS: SERTRALINE HCL 100 MG TABLET PO SCH (20:59)
[2019-04-18] MEDS: ASCORBIC ACID 500 MG TAB PO SCH (09:02)
[2019-04-18] MEDS: METOPROLOL SUCC 50MG EXT REL TAB PO SCH ×2 (09:02→10:00)
[2019-04-18] MEDS: allopurinoL 100 MG TAB PO SCH (09:03)
[2019-04-18] MEDS: LOSARTAN POTASSIUM 50 MG TAB PO SCH (09:04)
[2019-04-18] MEDS: CHOLECALCIFEROL 1,000 UNITS TAB PO SCH (09:04)
[2019-04-18] MEDS: hydroCHLOROthiazide 25 MG TAB PO SCH (09:05)
[2019-04-18] MEDS: POLYETHYLENE (MIRALAX) 17 GM PACK PO SCH (09:06)
--- NOTE | 2019-04-18 12:54 | Cardiology Progress Note ---
Date of Service April 18, 2019 Assessment & Plan (1) Exertional dyspnea: He has a significant worsening of his exertional ability over the last 4 to 6 weeks, prior to that he felt that he could perform much more activity. He does not have his typical anginal symptoms that he had prior to his stent placement however. He does not recall ever being told he had frequent premature ventricular beats in the past, he now has very frequent beats and perhaps that is a cause of his symptoms. He may also have chronotropic incompetence on beta- blockade. (2) Frequent PVCs: He has very frequent premature ventricular beats which appear to be single and monomorphic suggesting a single focus, it appears to be in the left ventricle based on morphology. Although beta-blockers may be used to suppress the arrhythmia he may also have orthostatic symptoms and chronotropic incompetence limiting her ability to use beta-blockade. At this point I agree with discontinuation of beta-blockade and observing overnight (he received 50 mg of metoprolol succinate this morning so that will still be in effect until least tomorrow afternoon), at that point I think we should try an antiarrhythmic agent to suppress the premature beats. If we use one which does not have a lot of negative chronotropic effect (possibly flecainide although it does have some of that effect) but is very effective in controlling PVCs perhaps we can determine where that is the cause of his symptoms or not. I would not start an antiarrhythmic until tomorrow. (3) CAD (coronary artery disease): He has coronary disease, I do not believe he has had a myocardial infarction and there is no evidence of wall motion abnormalities on echocardiography. It is probably safe to use an antiarrhythmic in this setting. We may want to perform stress testing, it is conceivable his dyspnea exertion is an anginal equivalent but with the very frequent PVCs I think we should treat them first since they would also interfere with our ability to evaluate the stress test. Subjective Patient continues to have some difficulty with exertion, with ambulating in the hallway he had some fatigue which was improved somewhat with decrease in his beta-blockade. He is not terribly aware of his PVCs, he does not seem to have much in the way of palpitations. His symptoms prior to his stent placement were neck and shoulder pain which resolved with rest and caused exhaustion with physical activity, he has had none of these symptoms recently, his current symptoms are quite different. Physical Exam Physical Exam: Constitutional: Alert, cooperative and in no distress. Pulmonary: Clear to auscultation bilaterally. Cardiac: Irregular rhythm with no murmur, gallop or rub. Abdomen: Soft, nontender with normal bowel sounds. Extremities: No edema. Skin: No rash, ecchymoses or petechiae. Results & Data Vital Signs (Past 12 Hours) Vital Signs Temp Pulse Pulse Resp BP BP Pulse Ox 04/18/19 12:03 37.5 C 74 18 115/68 95 04/18/19 10:01 90 04/18/19 07:49 36.5 C 53 L 18 118/72 93 04/18/19 03:12 36.4 C L 52 L 16 112/70 94 04/18/19 01:49 76 Diagnostic Findings Telemetry: Sinus rhythm and sinus bradycardia with very frequent premature ventricular beats, his ventricular rate without the premature ventricular beats is in the 50 to 60s, his PVCs are in the range of about 30% and drop his effective heart rate. He does not have a significant increase in heart rate with activity. Electrocardiogram: His electrocardiogram showed sinus rhythm with very frequent premature ventricular beats, right bundle branch block pattern. His PVCs also have a right bundle branch block pattern and are likely from the left ventricle. Echocardiogram: Normal left ventricular function, frequent premature beats. PG Care Time/CCT Total # of Minutes Spent Total Time Spent with Patient: Total time spent is greater than 50% in coordination of care (as documented) at patient's floor/unit and/or counseling patient:
--- NOTE | 2019-04-18 12:58 | Hospitalist Progress Note ---
Date of Service April 18, 2019 Assessment & Plan (1) Exertional dyspnea: 68 y/o M who presented with 6 weeks of sporadic dizziness and lightheadedness when walking around the house and up the stairs Exertional dyspnea: - uncertain origin and etiology, comes with the dizziness while walking halls with providers, HR maintained in low 60s despite increased work of breathing; on telemetry rate measured in 90s but high rate of PVCs; since admission PVCs likely account for >20% of monitored activity - had stent placed in 2017, with residual atherosclerotic disease - EKG demonstrated frequent PVCs; telemetry remains with frequent PVCs that are new with this admission - Echo: demonstrated normal cardiac function - continue losartan 50mg daily, and HCTZ - stopped metoprolol; patient may benefit from anti-arrhythmic medication - will continue to monitor patient with ambulation to evaluate continued changes - Cards consulted: appreciate recs Dizziness: - likely a continuation of the non-cardiac dyspnea Frequent PVCs: - as above Chronic ITP: - baseline platelets set between 80-100 - continue to monitor Depression: - continue home meds Diet: Code: DVT ppx: (2) Dizziness: (3) Frequent PVCs: (4) Near syncope: (5) Chronic ITP (idiopathic thrombocytopenia): (6) Depression: Supervising Physician Co-Signing Physician Notes I personally examined the patient and verified all mandujano points of history and exam, discussed case, and agree with decision making with Dr Sánchez. feeling a little bit better, but still having a degree of CLARK - less lightheaded. walked pt personally ~100ft and 2 flights of steps - did better on the level for ~50ft without much dyspnea and no lightheaded, after a flight of steps somewhat dyspnic and maybe a little lightheaded - moreso after second flight. despite visibly working to breathe, HR had come up but only to about 70. walking back to room on the level he did OK but was working to breathe - once in bed, immediately checked pulse (even as he was still working hard to breathe) and pulse was only ~50 - immediately checked on monitor - rate 100 w trigemeny on monitor Vitals noted, in general he is awake and alert pleasant no distress. HEENT normocephalic atraumatic mucous membranes are moist. Breathing at rest is unlabored with no accessory muscles good effort, see above for findings during walking/stairs. No focal neuro deficits. Mental status shows good recent and remote recall normal mood and affect good judgment and insight. Lightheadedness/dyspnea on exertion-appearing more and more likely to be due to poor cardiac output with exertion due to low functional HR. ?sick sinus with baseline martha but ectopy making this harder to see due to documented rates (as opposed to perfusing rates) vs actually feeling the ectopy vs elements of both. d/w EP who then saw pt - see note/input greatly appreciated. stop metoprolol altogether for now and follow. due to prior CAD still believe that stress testing for completeness sake given that dyspnea as an anginal equivalent (even if it was not his prior sx) is common - but given a stronger working alternate dx and no trop/reassuring echo/etc this seems lower priority.. Unsteadiness when he closes his eyesdoes not seem to be a dominant part of the picture, will follow for any signs or symptoms of any other neuropathic process. Seasonal affective/depressiondiscussed lifestyle modalities on 04/17, continue current medications. Otherwise as above Subjective Patient feels well this morning, did not have any continued lightheadedness or dizziness overnight; was able to get up and use the bathroom on his own and did not feel like that level of exertion was too much for him Later in the morning, with providers walked around halls and up stairs and quickly became short of breath and lightheaded despite a limited level of exertion. This continued after he sat down, and slowly resolved as patient returned to laying in bed and was consistently. Review of Systems Constitutional: no fever and no chills Eyes: no diplopia and no spots in vision Respiratory: no dyspnea and no wheezing Cardiovascular: + dyspnea on exertion; no chest pain and no dyspnea at rest Physical Exam Constitutional: WD/WN, vitals as above Eyes: PERRL, conjunctivae normal, anicteric sclerae Respiratory: normal respiratory effort, lungs clear to auscultation Cardiovascular: Rate/Rhythm: regular rate and regular rhythm Heart Sounds: normal S1 and normal S2; no gallop, no murmur and no cardiac rub Vessels: no JVD and no carotid bruit Extremities: no edema Results & Data Vital Signs (Past 12 Hours) Vital Signs Temp Pulse Pulse Resp BP BP Pulse Ox 04/18/19 12:03 37.5 C 74 18 115/68 95 04/18/19 10:01 90 04/18/19 07:49 36.5 C 53 L 18 118/72 93 04/18/19 03:12 36.4 C L 52 L 16 112/70 94 04/18/19 01:49 76 Laboratory Results 04/16/19 Range/Units 15:33 Estimat Average Glucose 117 mg/dl Hemoglobin A1c 5.7 H (4.5-5.6) % Medications Administered Current Inpatient Medications Acetaminophen (Tylenol) 650 mg PO Q4H PRN PRN Reason: Pain or Fever Stop: 05/16/19 19:29 Last Admin: 04/16/19 23:25 Dose: 650 mg Documented by: Allopurinol (Zyloprim) 150 mg PO [facility] Stop: 05/17/19 08:59 Last Admin: 04/18/19 09:03 Dose: 150 mg Documented by: Ascorbic Acid (Vitamin C) 500 mg PO [facility] Stop: 05/17/19 08:59 Last Admin: 04/18/19 09:02 Dose: 500 mg Documented by: Aspirin (Ecotrin Ectab) 81 mg PO QPM [facility] Stop: 05/16/19 20:59 Last Admin: 04/17/19 20:59 Dose: 81 mg Documented by: Hydrochlorothiazide (Hctz) 6.25 mg PO [facility] Stop: 05/17/19 08:59 Last Admin: 04/18/19 09:05 Dose: 6.25 mg Documented by: Losartan Potassium (Cozaar) 50 mg PO [facility] Stop: 05/17/19 08:59 Last Admin: 04/18/19 09:04 Dose: 50 mg Documented by: Nitroglycerin (Nitrostat) 0.4 mg SL Q5M PRN PRN Reason: chest pain Stop: 05/16/19 18:16 Polyethylene Glycol (Miralax Powder Packet) 17 gm PO [facility] Stop: 05/17/19 08:59 Last Admin: 04/18/19 09:06 Dose: 17 gm Documented by: Sertraline HCl (Zoloft) 100 mg PO PM [facility] Stop: 05/16/19 20:59 Last Admin: 04/17/19 20:59 Dose: 100 mg Documented by: Simvastatin (Zocor) 20 mg PO PM [facility] Stop: 05/16/19 20:59 Last Admin: 04/17/19 20:59 Dose: 20 mg Documented by: Vitamin D (Vitamin D3) 2,000 units PO QAM [facility] Stop: 05/17/19 08:59 Last Admin: 04/18/19 09:04 Dose: 2,000 units Documented by: Zolpidem Tartrate (Ambien) 5 mg PO HS PRN PRN Reason: Sleep Stop: 05/16/19 19:29 Resident Activity Tracking Resident Involvement: Resident Care Provided Care Provided: Adult Hospital Medicine
--- NOTE | 2019-04-18 16:43 | Billing Data ---
Date of Service April 18, 2019 Coding Level of Care Code 52214 Subseq Hosp Care Lvl 3
[2019-04-18] MEDS: ASPIRIN 81 MG ECTAB PO SCH (22:00)
[2019-04-18] MEDS: SIMVASTATIN 20 MG TAB PO SCH (22:00)
[2019-04-18] MEDS: SERTRALINE HCL 100 MG TABLET PO SCH (22:00)
[2019-04-19] MEDS: ASCORBIC ACID 500 MG TAB PO SCH (07:47)
[2019-04-19] MEDS: hydroCHLOROthiazide 25 MG TAB PO SCH (07:47)
[2019-04-19] MEDS: LOSARTAN POTASSIUM 50 MG TAB PO SCH (07:48)
[2019-04-19] MEDS: CHOLECALCIFEROL 1,000 UNITS TAB PO SCH (07:48)
[2019-04-19] MEDS: POLYETHYLENE (MIRALAX) 17 GM PACK PO SCH (07:48)
[2019-04-19] MEDS: allopurinoL 100 MG TAB PO SCH (07:49)
--- NOTE | 2019-04-19 11:40 | Cardiology Progress Note ---
Date of Service April 19, 2019 Assessment & Plan (1) Exertional dyspnea: He has a significant worsening of his exertional ability over the last 4 to 6 weeks, prior to that he felt that he could perform much more activity. He does not have his typical anginal symptoms that he had prior to his stent placement however. He does not recall ever being told he had frequent premature ventricular beats in the past, he now has very frequent beats although on an intermittent basis and perhaps that is a cause or contributor of his symptoms. He may also have chronotropic incompetence on beta-blockade possibly suggestive of sinus node dysfunction which could also contribute. (2) Frequent PVCs: He has very frequent premature ventricular beats which appear to be single and monomorphic suggesting a single focus, it appears to be in the left ventric le based on morphology. Although beta-blockers may be used to suppress the arrhythmia he may also have orthostatic symptoms and chronotropic incompetence limiting her ability to use beta-blockade. At this point I agree with discontinuation of beta-blockade and observing (he received 50 mg of metoprolol succinate yesterday morning so that will still be in effect until least this afternoon), interestingly he had periods of time where he did not have premature ventricular beats on the reduced dose of beta-blockade. His heart rate still appears to be low (in the 50s) and this is looking more like chronotropic incompetence but it is too early to tell. If his symptoms are not relieved by tomorrow and most of the beta-alex will have been eliminated that I would add an antiarrhythmic agent to try to suppress his premature ventricular beats before considering a pacemaker. If we use an antiarrhythmic which does not have a lot of negative chronotropic effect (possibly flecainide although it does have some of that effect) but is very effective in controlling PVCs perhaps we can determine where that is the cause of his symptoms or not. I would not start an antiarrhythmic until tomorrow. (3) CAD (coronary artery disease): He has coronary disease, I do not believe he has had a myocardial infarction and there is no evidence of wall motion abnormalities on echocardiography. It is probably safe to use an antiarrhythmic in this setting. We may want to perform stress testing, it is conceivable his dyspnea exertion is an anginal equivalent but with the very frequent PVCs I think we should treat them first since they would also interfere with our ability to evaluate the stress test. Subjective He is feeling relatively well today but he has not been very active and cannot tell if he is still having dyspnea on exertion. He is not having palpitations. Physical Exam Physical Exam: Constitutional: Alert, cooperative and in no distress. Pulmonary: Clear to auscultation bilaterally. Cardiac: Irregular rhythm with no murmur, gallop or rub. Abdomen: Soft, nontender with normal bowel sounds. Extremities: No edema. Skin: No rash, ecchymoses or petechiae. Results & Data Vital Signs (Past 12 Hours) Vital Signs Temp Pulse Pulse Pulse Resp BP BP 04/19/19 08:00 36.3 C L 53 L 18 105/67 04/19/19 02:51 36.4 C L 50 L 18 133/75 04/19/19 00:39 49 L Pulse Ox 04/19/19 08:00 98 04/19/19 02:51 93 04/19/19 00:39 Laboratory Results Intake and Output 04/18/19 04/19/19 04/19/19 22:59 06:59 14:59 Intake Total 300 / 2295 300 / 2295 Balance 300 / 2295 300 / 2295 Intake: Oral 300 / 2295 300 / 2295 Other: # Unmeasured Voids 2 Weight 107.5 kg Diagnostic Findings Telemetry: Underlying rhythm is sinus bradycardia at around 50, starting at around 1600 yesterday he had a marked diminution in PVCs although there was 1 episode of several hours where he had very frequent PVCs. They then started again at around 9:00 this morning. PG Care Time/CCT Total # of Minutes Spent Total Time Spent with Patient: Total time spent is greater than 50% in coordination of care (as documented) at patient's floor/unit and/or counseling patient:
--- NOTE | 2019-04-19 13:08 | Hospitalist Progress Note ---
Date of Service April 19, 2019 Assessment & Plan (1) Exertional dyspnea: 68 y/o M who presented with 6 weeks of sporadic dizziness and lightheadedness when walking around the house and up the stairs Exertional dyspnea: - uncertain origin and etiology, comes with the dizziness while walking halls with providers, HR maintained in low 60s despite increased work of breathing; on telemetry rate measured in 90s but high rate of PVCs; since admission PVCs likely account for >20% of monitored activity - had stent placed in 2017, with residual atherosclerotic disease - EKG demonstrated frequent PVCs; telemetry remains with frequent PVCs and persistent trigeminy HR typically sitting in 60s-70s - Echo: demonstrated normal cardiac function - continue losartan 50mg daily, and HCTZ - stopped metoprolol; patient may benefit from anti-arrhythmic medication - will continue to monitor patient with ambulation to evaluate continued changes - Exercise Stress Echo tomorrow - Cards consulted: appreciate recs Dizziness: - as above Frequent PVCs: - as above Chronic ITP: - baseline platelets set between 80-100 - continue to monitor Depression: - continue home meds Diet: NPO at midnight Code: Full DVT ppx: (2) Dizziness: (3) Frequent PVCs: (4) Near syncope: (5) Chronic ITP (idiopathic thrombocytopenia): (6) Depression: Supervising Physician Co-Signing Physician Notes I personally examined the patient and verified all mandujano points of history and exam, discussed case, and agree with decision making with Dr Sánhcez. Feeling more or less about the same. Walking the hallway without a whole lot of dyspnea, but whenever we walk up the steps he has a degree of dyspnea may be mild degree of lightheadedness. Heart rates still do not quite improve his much as would be expected given how hard it looks like he is working. Otherwise no new complaints, updated to the best of my ability and answered all questions to patient and 's satisfaction. Vitals noted, in general he is awake and alert pleasant no distress. HEENT normocephalic atraumatic mucous membranes are moist. Breathing at rest is unlabored with no accessory muscles good effort, heart rate stay mostly in the 50s to 70s by palpation while walking, on monitor he shows an awful lot of bigeminy and trigeminy with the computer rate being closer to 100. No focal neuro deficits. Mental status shows good recent and remote recall normal mood and affect good judgment and insight. Lightheadedness/dyspnea on exertion-appearing more and more likely to be due to poor cardiac output with exertion due to low functional HR. ?sick sinus with baseline martha but ectopy making this harder to see due to documented rates (as opposed to perfusing rates) vs actually feeling the ectopy vs elements of both. d/w EP who then saw pt - see note/input greatly appreciated. Continue to follow off of metoprolol, by tomorrow which should have totally washed out. due to prior CAD still believe that stress testing for completeness sake given that dyspnea as an anginal equivalent (even if it was not his prior sx) is common - but given a stronger working alternate dx and no trop/reassuring echo/etc this seems lower priority, however following for chronotropic response under controlled conditions may be helpful with discerning above. Unsteadiness when he closes his eyesdoes not seem to be a dominant part of the picture, will follow for any signs or symptoms of any other neuropathic process. Seasonal affective/depressiondiscussed lifestyle modalities on 04/17, continue current medications. Otherwise as above Subjective He is feeling relatively well today but he has not been very active, but continues to not have the feeling of changes when he walks around the hospital as he did when he was at home Review of Systems Constitutional: no fever, no chills and no sweats Respiratory: no cough, no dyspnea and no wheezing Cardiovascular: no chest pain, no palpitations, no syncope and no edema Gastrointestinal: no abdominal pain, no nausea and no vomiting Physical Exam Constitutional: WD/WN, vitals as above Eyes: PERRL, conjunctivae normal, anicteric sclerae Respiratory: normal respiratory effort, lungs clear to auscultation Cardiovascular: Rate/Rhythm: regular rate and regular rhythm Heart Sounds: normal S1 and normal S2; no gallop, no murmur and no cardiac rub Vessels: no JVD and no carotid bruit Extremities: no edema Results & Data Vital Signs (Past 12 Hours) Vital Signs Temp Pulse Pulse Resp BP BP Pulse Ox 04/19/19 11:37 36.4 C L 56 L 20 118/72 92 04/19/19 08:00 36.3 C L 53 L 18 105/67 98 04/19/19 02:51 36.4 C L 50 L 18 133/75 93 Medications Administered Current Inpatient Medications Acetaminophen (Tylenol) 650 mg PO Q4H PRN PRN Reason: Pain or Fever Stop: 05/16/19 19:29 Last Admin: 04/16/19 23:25 Dose: 650 mg Documented by: [facility]) [facility] [place] Stop: 05/17/19 08:59 Last Admin: 04/19/19 07:49 Dose: 150 mg Documented by: Ascorbic Acid (Vitamin C) [facility] [place] Stop: 05/17/19 08:59 Last Admin: 04/19/19 07:47 Dose: 500 mg Documented by: Aspirin (Ecotrin Ectab) 81 mg PO QPM [facility] Stop: 05/16/19 20:59 Last Admin: 04/18/19 22:00 Dose: 81 mg Documented by: Hydrochlorothiazide (Hctz) [facility] [place] Stop: 05/17/19 08:59 Last Admin: 04/19/19 07:47 Dose: 6.25 mg Documented by: Losartan Potassium (Cozaar) 50 mg PO [facility] Stop: 05/17/19 08:59 Last Admin: 04/19/19 07:48 Dose: 50 mg Documented by: Nitroglycerin (Nitrostat) 0.4 mg SL Q5M PRN PRN Reason: chest pain Stop: 05/16/19 18:16 Polyethylene Glycol (Miralax Powder Packet) 17 gm PO [facility] Stop: 05/17/19 08:59 Last Admin: 04/19/19 07:48 Dose: 17 gm Documented by: Sertraline HCl (Zoloft) 100 mg PO PM [facility] Stop: 05/16/19 20:59 Last Admin: 04/18/19 22:00 Dose: 100 mg Documented by: Simvastatin (Zocor) 20 mg PO PM [facility] Stop: 05/16/19 20:59 Last Admin: 04/18/19 22:00 Dose: 20 mg Documented by: Vitamin D (Vitamin D3) 2,000 units [facility] [place] Stop: 05/17/19 08:59 Last Admin: 04/19/19 07:48 Dose: 2,000 units Documented by: Zolpidem Tartrate (Ambien) 5 mg PO HS PRN PRN Reason: Sleep Stop: 05/16/19 19:29 Resident Activity Tracking Resident Involvement: Resident Care Provided Care Provided: Adult [facility]
--- NOTE | 2019-04-19 19:26 | Billing Data ---
Date of Service April 19, 2019 Coding Level of Care Code 17039 Subseq Hosp Care Lvl 3
[2019-04-19] MEDS: SIMVASTATIN 20 MG TAB PO SCH (21:17)
[2019-04-19] MEDS: SERTRALINE HCL 100 MG TABLET PO SCH (21:17)
[2019-04-19] MEDS: ASPIRIN 81 MG ECTAB PO SCH (21:17)
[2019-04-20 06:53] LABS: Hematocrit (blood only) 50.7 % (42-52); Hemoglobin 17.4 g/dL (14.0-18.0); Mean Corpuscular Hemoglobin 31.2 pg (25-34); Mean Corpuscular Hgb Conc 34.3 g/dL (32-36); RDW Coefficient of Variation 14.5 % (11.5-14.5); RDW Standard Deviation 48.2 fL (36.4-46.3); Red Blood Count 5.57 M/uL (4.7-6.1); White Blood Count 4.48 K/uL (4.8-10.8)
[2019-04-20 07:22] LABS: BUN Creatinine Ratio 14.3 (10-20); Calcium 9.3 mg/dl (8.5-10.1); Creatinine Clr Calc Pharmacy 73.1 ml/min; Est GFR (Non-African American) 58.6; Potassium 3.7 mmol/L (3.5-5.1)
[2019-04-20 07:27] LABS: Mean Platelet Volume 11.4 fL (7.4-10.4); Platelet Count 77 K/uL (130-400)
[2019-04-20 07:30] LABS: Basophils # (auto) 0.01 K/uL (0-0.2); Basophils % (auto) 0.2 %; Eosinophils # (auto) 0.08 K/uL (0-0.5); Eosinophils % (auto) 1.8 %; Immature Granulocytes # (auto) 0.01 K/uL (0.00-0.02); Immature Granulocytes % (auto) 0.2 %; Lymphocytes # (auto) 0.97 K/uL (1.2-3.4); Lymphocytes % (auto) 21.7 %; Monocytes # (auto) 0.33 K/uL (0.11-0.59); Monocytes % (auto) 7.4 %; Neutrophils # (auto) 3.08 K/uL (1.4-6.5); Neutrophils % (auto) 68.7 %
[2019-04-20] MEDS: ASCORBIC ACID 500 MG TAB PO SCH (08:05)
[2019-04-20] MEDS: LOSARTAN POTASSIUM 50 MG TAB PO SCH (08:05)
[2019-04-20] MEDS: hydroCHLOROthiazide 25 MG TAB PO SCH (08:05)
[2019-04-20] MEDS: CHOLECALCIFEROL 1,000 UNITS TAB PO SCH (08:07)
[2019-04-20] MEDS: allopurinoL 100 MG TAB PO SCH (08:07)
[2019-04-20] MEDS ORDERED: AMIODARONE IV BOLUS / DRIP IV STA (08:51)
[2019-04-20] MEDS ORDERED: AMIODARONE / D5W 150 MG/100 ML BAG IV ONE (09:15)
[2019-04-20] MEDS ORDERED: AMIODARONE / D5W 360 MG/200 ML BAG IV SCH (09:30)
[2019-04-20] MEDS: POLYETHYLENE (MIRALAX) 17 GM PACK PO SCH (12:14)
[2019-04-20] MEDS: AMIODARONE / D5W 360 MG/200 ML BAG IV SCH ×2 (15:39→19:37)
--- NOTE | 2019-04-20 15:42 | Hospitalist Progress Note ---
Date of Service April 20, 2019 Assessment & Plan (1) Dizziness: 68 y/o M who presented with 6 weeks of sporadic dizziness and lightheadedness when walking around the house and up the stairs; found to have frequent PVCs. Exertional dyspnea: - Uncertain origin and etiology, comes with the dizziness while walking halls with providers, HR maintained in low 60s despite increased work of breathing; on telemetry rate measured in 90s but high rate of PVCs; since admission PVCs likely account for >20% of monitored activity - Had stent placed in 2017, with residual atherosclerotic disease - EKG demonstrated frequent PVCs; telemetry remains with frequent PVCs and p ersistent trigeminy HR typically sitting in 60s-70s - Echo: demonstrated normal cardiac function - Continue losartan 50mg daily, and HCTZ - Cardiology consulted: for Stress Echo tomorrow. Currently on amiodarone drip overnight to help control ectopy. Dizziness: - As above. Frequent PVCs: - As above. Chronic ITP: - Baseline platelets set between 80-100; today plt 77. - Continue to monitor. Depression: - Continue home meds. Diet: NPO at midnight Code: Full DVT ppx: SCDs Dispo: Telemetry (2) Exertional dyspnea: (3) Frequent PVCs: (4) History of ITP: Supervising Physician Co-Signing Physician Notes Patient seen and examined with PGY-1 Dr. Stone. Agree with history, exam findings, assessment and plan of care as outlined. In brief, Mr. Garduno is a 68 year old male with hx of CAD and depression admitted with new dyspnea on exertion. Has noticed his HR has increased without the metoprolol. Denies dizziness. Vital signs and nursing notes reviewed. Awake and alert. Well appearing. Breathing unlabored and clear to auscultation. Heart with regular rate. Some ectomy on the monitor. 1. dyspnea on exertion, stopped betablocker and started amio gtt to try to eliminate some of the ectopy prior to stress echo tomorrow. - TSH checked since he may be on [facility] living. 2. Chronic ITP. platelet count stable. Continue to monitor. Other chronic issues stable. Dispo: pending stress echo tomorrow morning. NPO at MN. Subjective Pt with 9 beat run of VTach overnight, but without symptoms. Reports feeling much better today; no SOB, no dizziness, no CP or palpitations. No fevers or chills. No abdominal pain. Review of Systems Constitutional: no fever, no chills and no malaise Respiratory: no cough and no dyspnea Cardiovascular: no chest pain, no palpitations and no edema Gastrointestinal: no abdominal pain, no constipation and no diarrhea/loose stools Physical Exam Constitutional: WD/WN, vitals as above Respiratory: normal respiratory effort, lungs clear to auscultation Cardiovascular: RRR, no murmur, no edema Gastrointestinal (Abdomen): normal bowel sounds, soft, nontender, no hepatosplenomegaly Skin: no rashes, warm and dry Psychiatric: A+Ox3, euthymic affect Results & Data Vital Signs (Past 12 Hours) Vital Signs Temp Pulse Pulse Pulse Resp BP Pulse Ox 04/20/19 11:32 36.8 C 86 16 132/64 98 04/20/19 07:52 86 04/20/19 07:23 37.1 C 58 L 20 126/78 95 04/20/19 03:57 36.4 C L 54 L 18 139/76 96 Laboratory Results Laboratory Results - last 24 hr 04/20/19 04/20/19 04/20/19 06:29 06:29 06:29 WBC 4.48 L RBC 5.57 Hgb 17.4 Hct 50.7 MCV 91.0 MCH 31.2 MCHC 34.3 RDW Std Deviation 48.2 H RDW Coeff of Mari 14.5 Plt Count 77 L MPV 11.4 H Immature Gran % (Auto) 0.2 Neut % (Auto) 68.7 Lymph % (Auto) 21.7 Pinal % (Auto) 7.4 Eos % (Auto) 1.8 Baso % (Auto) 0.2 Immature Gran # (Auto) 0.01 Neut # (Auto) 3.08 Lymph # (Auto) 0.97 L P[place] # (Auto) 0.33 Eos # (Auto) 0.08 Baso # (Auto) 0.01 Sodium 139 Potassium 3.7 Chloride 104 Carbon Dioxide 29 Anion Gap 6.0 BUN 18 Creatinine 1.26 Est Cr Clr Drug Dosing 73.1 Est GFR ( Amer) 68.0 Est GFR (Non-Af Amer) 58.6 BUN/Creatinine Ratio 14.3 Glucose 111 H Calcium 9.3 TSH 1.740 Medications Administered Current Medications Acetaminophen (Tylenol) 650 mg PO Q4H PRN PRN Reason: Pain or Fever Stop: 05/16/19 19:29 Last Admin: 04/16/19 23:25 Dose: 650 mg Documented by: Allopurin[facility] (Zyloprim) [facility] [place] Stop: 05/17/19 08:59 Last Admin: 04/20/19 08:07 Dose: 150 mg Documented by: Ascorbic Acid (Vitamin C) 500 mg PO [facility] Stop: 05/17/19 08:59 Last Admin: 04/20/19 08:05 Dose: 500 mg Documented by: Aspirin (Ecotrin Ectab) 81 mg PO QPM [facility] Stop: 05/16/19 20:59 Last Admin: 04/19/19 21:17 Dose: 81 mg Documented by: Hydrochlorothiazide (Hctz) 6.25 mg PO QAM [facility] Stop: 05/17/19 08:59 Last Admin: 04/20/19 08:05 Dose: 6.25 mg Documented by: Amiodarone HCl/Dextrose (Nexterone / D5w) 360 mg in 200 mls @ 16.667 mls/hr IV .Q12H [facility] Stop: 05/20/19 15:29 Last Admin: 04/20/19 15:39 Dose: 0.5 mg/min, 16.7 mls/hr Documented by: Losartan Potassium (Cozaar) [facility] Stop: 05/17/19 08:59 Last Admin: 04/20/19 08:05 Dose: 50 mg Documented by: Nitroglycerin (Nitrostat) 0.4 mg SL Q5M PRN PRN Reason: chest pain Stop: 05/16/19 18:16 Polyethylene Glycol (Miralax Powder Packet) 17 gm PO [facility] Stop: 05/17/19 08:59 Last Admin: 04/20/19 12:14 Dose: Not Given Documented by: Sertraline HCl (Zoloft) 100 mg PO PM [facility] Stop: 05/16/19 20:59 Last Admin: 04/19/19 21:17 Dose: 100 mg Documented by: Simvastatin (Zocor) 20 mg PO PM [facility] Stop: 05/16/19 20:59 Last Admin: 04/19/19 21:17 Dose: 20 mg Documented by: Vitamin D (Vitamin D3) 2,000 units PO M [facility] Stop: 05/17/19 08:59 Last Admin: 04/20/19 08:07 Dose: 2,000 units Documented by: Zolpidem Tartrate (Ambien) 5 mg PO HS PRN PRN Reason: Sleep Stop: 05/16/19 19:29 Resident Activity Tracking Resident Involvement: Resident Care Provided Care Provided: Adult Hospital Medicine
[2019-04-20] MEDS: ASPIRIN 81 MG ECTAB PO SCH (21:30)
[2019-04-20] MEDS: SERTRALINE HCL 100 MG TABLET PO SCH (21:30)
[2019-04-20] MEDS: SIMVASTATIN 20 MG TAB PO SCH (21:30)
[2019-04-21 07:02] LABS: Hematocrit (blood only) 51.1 % (42-52); Hemoglobin 17.7 g/dL (14.0-18.0); Mean Corpuscular Hemoglobin 31.6 pg (25-34); Mean Corpuscular Hgb Conc 34.6 g/dL (32-36); Mean Corpuscular Volume 91.1 fL (80-100); RDW Coefficient of Variation 14.5 % (11.5-14.5); RDW Standard Deviation 48.8 fL (36.4-46.3); Red Blood Count 5.61 M/uL (4.7-6.1); White Blood Count 5.32 K/uL (4.8-10.8)
[2019-04-21 07:27] LABS: Mean Platelet Volume 12.7 fL (7.4-10.4); Platelet Count 73 K/uL (130-400)
[2019-04-21 07:28] LABS: Basophils # (auto) 0.01 K/uL (0-0.2); Basophils % (auto) 0.2 %; Eosinophils # (auto) 0.07 K/uL (0-0.5); Eosinophils % (auto) 1.3 %; Immature Granulocytes # (auto) 0.02 K/uL (0.00-0.02); Immature Granulocytes % (auto) 0.4 %; Lymphocytes # (auto) 0.83 K/uL (1.2-3.4); Lymphocytes % (auto) 15.6 %; Monocytes # (auto) 0.49 K/uL (0.11-0.59); Monocytes % (auto) 9.2 %; Neutrophils % (auto) 73.3 %; Platelet Estimate Decreased (Normal)
[2019-04-21 07:31] LABS: BUN Creatinine Ratio 13.1 (10-20); Calcium 9.1 mg/dl (8.5-10.1); Creatinine Clr Calc Pharmacy 75.5 ml/min; Est GFR (African American) 70.7; Potassium 3.8 mmol/L (3.5-5.1)
[2019-04-21] MEDS: allopurinoL 100 MG TAB PO SCH (08:49)
[2019-04-21] MEDS: AMIODARONE / D5W 360 MG/200 ML BAG IV SCH (08:49)
[2019-04-21] MEDS: CHOLECALCIFEROL 1,000 UNITS TAB PO SCH (08:49)
[2019-04-21] MEDS: LOSARTAN POTASSIUM 50 MG TAB PO SCH (08:49)
[2019-04-21] MEDS: ASCORBIC ACID 500 MG TAB PO SCH (08:50)
[2019-04-21] MEDS: POLYETHYLENE (MIRALAX) 17 GM PACK PO SCH (08:50)
[2019-04-21] MEDS: hydroCHLOROthiazide 25 MG TAB PO SCH (08:50)
--- NOTE | 2019-04-21 09:30 | Cardiology Progress Note ---
Date of Service April 21, 2019 Assessment & Plan (1) Exertional dyspnea: Fortunately, the patient's exertional dyspnea has improved since starting intravenous amiodarone. Differential diagnosis of his exertional dyspnea includes frequent PVCs verses myocardial ischemia. Will undergo a stress test this morning. (2) Frequent PVCs: As above, PVC burden is less on intravenous amiodarone. The patient may still be experiencing chronotropic incompetence. Decision on medical verses device management will be made by Dr. Bender. (3) CAD (coronary artery disease): The patient had a KEVIN placed in the mid RCA back in September 2016. He does have evidence of a mid LAD bridge with a functional 40-50 percent stenosis. Subjective The patient is resting comfortably in bed without complaints of chest pain, dyspnea, or palpitations. Has ambulated without difficulty since starting amiodarone. In fact, he feels he may be improved. Physical Exam Physical Exam: In general this is a well-developed well-nourished white male in no acute distress. HEENT exam is negative. Neck is supple with full carotid upstrokes. There are no carotid bruits. Jugular venous pressure is flat at 90. There is no thyromegaly. Cardiovascular exam reveals a regular rhythm with a normal S1 and S2. No S3, S4, or murmurs are noted. Lungs are clear without rales, rhonchi, or wheezes. Abdomen is soft and nontender without bruits. Extremities reveal intact radial artery and posterior tibial pulses bilaterally. There is no peripheral edema. Results & Data Vital Signs (Past 12 Hours) Vital Signs Temp Pulse Resp BP Pulse Ox 04/21/19 08:00 36.8 C 58 L 18 142/69 H 96 04/21/19 04:16 36.5 C 54 L 16 138/81 94 04/20/19 23:51 36.6 C 57 L 20 136/[address] recording monitor notes frequent PVCs, however, the PVC burden seems less since starting amiodarone yesterday. PG Care Time/CCT Total # of Minutes Spent Total Time Spent with Patient: Total time spent is greater than 50% in coordination of care (as documented) at patient's floor/unit and/or counseling patient:
--- NOTE | 2019-04-21 13:57 | Discharge Summary ---
Date of Service April 21, 2019 Admission HPI Per Admitting Provider This is a 62-year-old male with past medical history of previous coronary artery disease status post stent, BPH, and hypertension who presents today complaining of dyspnea on exertion as well as near syncope. Patient is coming by his both are good historians. There is some debate between the patient and his regarding when symptoms started. The patient does note that over the past few weeks he has been noticing some worsening dyspnea on exertion. This was not severe first but he apparently has progressed to the point that he is having difficulty with any ambulation. He did have. And near syncope earlier today which is what prompted him to seek emergency evaluation. He denies any overt chest pain, palpitations, diaphoresis, nausea, vomiting, recent illness with fever or chills. [facility], he was noted to have some multiple PVCs on the monitor, heart rate at that time was stable in the 80s.. At the time my evaluation he had something that appeared to be trigeminy with a stable rate. Patient denies any recent weight changes. He also denies any cough or sputum production. He does state that his losartan was recently decreased and was wondering if that was relevant. Patient does follow with outpatient cardiology but only peripherally. Is on my evaluation the patient was in no acute distress and otherwise looked well. Admission Exam Per Admitting Provider Constitutional: well nourished, + well hydrated and cooperative; no acute distress ENMT: external ear and nose normal, oropharynx normal Neck: trachea midline, no thyromegaly Respiratory: Auscultation: lungs clear to auscultation bilaterally; no crackles, no rales, no rhonchi and no wheezes Cardiovascular: Rate/Rhythm: regular rate Heart Sounds: normal S1 and normal S2; no murmur Vessels: no JVD and no carotid bruit Irregularly regular rhythm Gastrointestinal (Abdomen): Percussion/Palpation: abdomen soft; abdomen nonten pierre, no guarding, abdomen not rigid and no hepatosplenomegaly Musculoskeletal: no cyanosis or clubbing, extremities motor strength 5/5 Neurologic: PERRL, EOMI, accommodation nl, no face palsy, no dysarthria Psychiatric: A+Ox3, euthymic affect Principal Diagnosis 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 Discharge Exam Constitutional WD/WN, vitals as above Respiratory normal respiratory effort, lungs clear to auscultation Cardiovascular RRR, no murmur, no edema Gastrointestinal (Abdomen) normal bowel sounds, soft, nontender, no hepatosplenomegaly Skin no rashes, warm and dry Psychiatric A+Ox3, euthymic affect Discharge Data Allergies Allergy/AdvReac Type Severity Reaction Status Date / Time maribell G-F 20 Allergy Mild KNEE Verified 04/16/19 15:10 INJECTION-KNEE SWELLING,SWEATING,FEVER Consultations 04/16/19 16:36 ED Decision to Admit Stat 04/16/19 19:30 Consult Cardiology Routine Ordered Studies 04/16/19 15:21 CT head/brain wo con Stat Hospital Course (1) Dizziness: 68 y/o M who presented with 6 weeks of sporadic dizziness and lightheadedness when walking around the house and up the stairs; found to have frequent PVCs. Exertional dyspnea: - Had stent placed in 2017, with residual atherosclerotic disease. - EKGon admission demonstrated frequent PVCs; telemetry remains with frequent PVCs and persistent trigeminy HR typically sitting in 60s-70s. - Echo: demonstrated normal cardiac function - Likely due to chronotropic incompetence from frequent PVCs. Pt's PVCs decreased substantially on amiodarone drip in hospital. Pt will not go home on amiodarone or any other antiarrhythmic. - Per Dr. Bender he will see pt within a week to further discuss antiarrhythmic therapy in the outpatient setting. His s test in hospital was negative for ischemia. - Pt will follow up with PCP as well. - Continue home losartan and HCTZ. Have discontinued metoprolol given pt's low heart rate and chronotropic incompetence. Dizziness: - As above. Frequent PVCs: - As above. Chronic ITP: - Baseline platelets set between 80-100; platelets stable in 70s in hospital. - Continue to monitor in outpatient. Depression: - Continue home meds. (2) Exertional dyspnea: (3) Frequent PVCs: (4) History of ITP: Total Time Total Time Spent Total Time Spent (In Minutes): see attending attestation. Discharge Plan Discharge Items Patient Disposition: Home - Self-Care Reason For Visit: NEAR SYNCOPE Discharge Diagnosis: Frequent PVCs (extra beats) Activity: Per Instructions section Lifting: Gradually increase as tolerated Bathing: No limitations Sexual Activity: When tolerated Exercise/Sports: Gradually increase as tolerated Driving/Machine Use: No limitations Non-emergency contact: Primary Care Provider and Study Hall Supervisor Call non-emergency contact if: you have any medication questions and your symptoms worsen Follow-up/Referrals: Tyler Bender MD [Physician] - 04/30/19 9:30 am Wanda Delgadillo [Primary Care Provider] - 04/24/19 2:10 pm (Please, follow up with Dr. Delgadillo's associate, Dr. Gustavo Weathers, on SaturdayApril 24 at 2:10 pm. *The office is located in [address] of [facility], next to this hospital. If you need to change this appointment, call their office at [phone].) Diet: Regular Addtl Attending Provider Instructions: During this visit you were evaluated for exertional shortness of breath and dizziness. You were found to have some irregular heart beats. Cardiology was involved with your care, and evaluated your heart with a stress test. This was normal, which is excellent news! They gave you an anti-arrhythmic, which helps to suppress these abnormal beats. You will be following up with cardiology on 04/30/18. Please keep this appointmen t. They will determine at that time whether you need any new medications added to your regimen. You also have an appointment with Dr. Delgadillo on 04/24/18. Please keep this appointment as well. The only changes to your medications this visit are DISCONTINUING your metoprolol. Should your symptoms worsen or change prior to your appointments, please do not hesitate to return to the ER. Pending Studies at Discharge: No Stand-Alone Forms: My [facility], Smoking Cessation Medications and DC Order Prescriptions: Continued nitroglycerin 0.4 mg tablet, sublingual 0.4 mg SL Q5M PRN (Reason: chest pain) Qty: 25 RF: 3 losartan-hydrochlorothiazide [Hyzaar] 100-12.5 mg tablet 0.5 tab PO QAM RF: 0 polyethylene glycol 3350 [Miralax] 17 gram Powder In Packet 17 g PO QAM RF: 0 sertraline [Zoloft] 100 mg Tablet 100 mg PO PM RF: 0 simvastatin 20 mg Tablet 20 mg PO PM RF: 0 allopurinol 300 mg Tablet 150 mg PO QAM RF: 0 coenzyme Q10 [CoQ-10] 100 mg Capsule 100 mg PO QAM RF: 0 cholecalciferol (vitamin D3) [Vitamin D3] 2,000 unit Capsule 2,000 unit PO QAM RF: 0 ascorbic acid (vitamin C) 500 mg Capsule 500 mg PO QAM RF: 0 aspirin [Aspir-81] 81 mg Tablet,Delayed Release (Dr/Ec) 81 mg PO QPM RF: 0 Discontinued metoprolol succinate [Toprol XL] 50 mg Tablet Extended Release 24 Hr 50 mg PO QAM RF: 0 Discharge Orders: Discharge Order (Routine); Ordered 04/21/19 Ordered By: Anna Zhang/Other Patient Handouts: Premature Ventricular Contractions Admission Data Admit Date/Time: 04/16/19 18:21 Attending Provider: Jasper Velazquez Admit Provider: Paolo Smalls Primary Care Provider: Wanda Delgadillo Other Providers: Paolo Smalls ; Home [facility]ero Other Interventions: Discharge Summary Assessment (RN) Last Done: 04/21/19 16:30 DC Date/Time DO NOT enter until pt leaves facility: 04/21/19 16:45 Supervising Physician Co-Signing Physician Notes Patient seen and examined with PGY-1 Dr. Stone. Agree with history, exam findings, assessment and plan of care as outlined. In brief, Mr. Garduno is a 68 year old male with hx of CAD, HTN, BPH, and ITP adm itted with new dyspnea on exertion. He was found to have some bradycardia as well as frequent PVCs. His beta alex was stopped as this was thought to be contributing to his dyspnea. Stopping his beta alex did help with his admitting symptom. Started on amio gtt prior to stress echo. Stress echo unremarkable. He will not go home on amio, but will follow up with cardiology soon after discharge. Beta alex was not restarted on discharge. Other chronic issues were stable and home medications continued. Close follow up with cardiology after discharge and close follow up with PCP, Dr. Delgadillo. I personally spent 40 minutes discharge planning for this patient. Resident Activity Tracking Resident Involvement: Resident Care Provided Care Provided: Adult [facility]
== END 2019-04-21 16:45 | disposition home or self-care (01) | DRG 309 ==
LOC: ED 13:03 → SUATTDRO 18:21 → 2N 18:21 → 2S 04-20 10:37